=== PATIENT | male | born 1995 | race Caucasian/White ===

== ENCOUNTER 2024-05-02 12:10 | Inpatient (IN) | payer OTHER, SELFPAY ==
[2024-05-02 12:23] VITALS: BMI 29.8
[2024-05-02 12:28] VITALS: BP 165/90; PULSE 76; RESP 16; TEMP 36.8; O2SAT 98
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
--- NOTE | 2024-05-02 13:12 | MHC.EDTECH ---
This tech provided lunch tray.
[2024-05-02 13:41] LABS: Hemoglobin 14.7 g/dl (14.0-18.0); Mean Corpuscular Hemoglobin 30.2 pg (27.0-33.0); Mean Corpuscular Volume 86.2 fL (80.0-98.0); Mean Platelet Volume 9.1 fL (9.4-12.4); Platelet Count 263 X10*3/uL (160-400); Red Blood Count 4.87 X10*6/uL (4.60-5.80); Red Cell Distribution Width 13.2 % (11.0-16.0)
[2024-05-02 13:49] LABS: WBC ABN SCTR FOR CBC 1
--- NOTE | 2024-05-02 13:52 | ED.PSYCH ---
HPI - Psych General Chief Complaint: Psychiatric Symptoms Stated Complaint: section 12 Time Seen by Provider: 05/02/24 12:55 Source: patient, family and EMS Mode of arrival: EMS Limitations: no limitations History of Present Illness ED Provider: Shanell Bustillo APRN HPI Narrative: 29 Year old male here with complaints of suicidal ideations with plan to use carbon monoxide in his car. Denies HI. Denies hallucinations. Drinks alcohol daily. Last drink was a day and this morning. Smokes marijuana. No additional substance use. Patient is not currently taking any daily medications. He denies any physical complaints. Related Data Allergies Allergy/AdvReac Type Severity Reaction Status Date / Time No Known Allergies Allergy Verified 05/02/24 12:32 Review of Systems Review of Systems: Yes all other systems are reviewed and are negative Constitutional: Constitutional: Reports no additional constitutional complaints, Denies body ache(s), Denies chills, Denies fever(s), Denies headache(s) and Denies weakness Eyes: Eyes: Reports no additional eye complaints and Denies change in vision ENT: Reports system reviewed and no additional complaints, except as documented, Denies dizziness, Denies headache(s), Denies nasal congestion, Denies nasal discharge and Denies neck pain Cardiovascular: Cardiovascular: Reports no additional cardiovascular complaints, Denies chest pain, Denies leg edema and Denies dyspnea Respiratory: Respiratory: Reports no additional respiratory complaints, Denies cough and Denies dyspnea Gastrointestinal: Gastrointestinal: Reports no additional gastrointestinal complaints, Denies abdominal pain, Denies diarrhea, Denies nausea and Denies vomiting Genitourinary: Genitourinary: Denies urinary incontinence Musculoskeletal: Musculoskeletal: Reports no additional musculoskeletal complaints, Denies back pain, Denies arthralgias, Denies joint swelling, Denies neck pain, Denies numbness and Denies tingling Integumentary/Breasts: Skin/Breast: Reports system reviewed and no additional complaints, except as docu and Denies rash Neurologic: Reports system reviewed and no additional complaints, except as documented, Denies Abnormal speech present, Denies dizziness, Denies headache(s), Denies numbness, Denies tingling and Denies weakness Psychiatric: Psychiatric: Denies homicidal ideation and Reports suicidal ideation [facility] Past Medical History Attestation statement: The following information was validated with the patient. Source: old records reviewed and nursing notes reviewed Social History Social History Advance Directives: No Advance Directives Information Provided: No Physical Exam Vital Signs: Vital Signs: Last Vital Signs Temp 98.2 F 05/02/24 12:28 Pulse 76 05/02/24 12:28 Resp 16 05/02/24 12:28 BP 165/90 H 05/02/24 12:28 Pulse Ox 98 05/02/24 12:28 O2 Del Method Room Air 05/02/24 12:28 BMI result Body Mass Index 29.8 Const: General: cooperative, healthy appearing, comfortable and no acute distress Orientation/consciousness: patient oriented x3 Limitations: no limitations HEENT: Head: Yes normal to inspection Ears: hearing grossly normal bilaterally General nose exam: Normal external nose present Face and sinus: Yes normal facial exam Mouth: Normal oral and palatal mucosa present Throat: Yes posterior oropharynx normal Eyes: General: appearance normal, both eyes and all related structures Pupils: Equal, round and reactive pupils present Neck: Neck: Yes normal visual inspection Chest: Chest palpation & inspection: normal inspection of the chest Resp: Effort & Inspection: normal respiratory effort Auscultation: clear to auscultation bilaterally Cardio: Rate: regular rate Rhythm: regular rhythm Peripheral pulses: Peripheral pulses 2+ throughout GI: Inspection: Yes normal to inspection Palpation (GI): Soft to palpation and nontender Auscultation: normal bowel sounds Back/Spine/Pelvis: Thoracic/Lumbar Spine: thoracic and lumbar spine normal to inspection Skin: General skin exam: no rashes or lesions noted Neuro: General: patient oriented x3, no focal motor deficits and normal sensation to monofilament Cranial nerves: Yes Equal, round and reactive pupils present Cognition (Neuro): normal cognition Speech: No Abnormal speech present Gait exam (Neuro): Normal gait present Motor exam (neuro): 5/5 motor strength present throughout Extrem: General: Yes normal to inspection Course Course Course Narrative: 1550-place in physician observation pending disposition Medical Decision Making Medical Decision Making [facility] Narrative: 29 Year old male here with complaints of suicidal ideations with plan to use carbon monoxide in his car. Denies HI. Denies hallucinations. Drinks alcohol daily. Last drink was a day and this morning. Smokes marijuana. No additional substance use. Patient is not currently taking any daily medications. He denies any physical complaints. Low concern for acute ingestion or trauma Will need labs, drug screen, crisis consultation Differential Diagnosis Differential Diagnoses: The differential diagnosis associated with the presentation includes depression, alcohol use disorder Admission/Observation Consideration of admission/observation: Escalation of care including admission/observation considered Lab Data MDM Lab Attestation statement: I reviewed the patient's lab results. 05/02/24 13:36 05/02/24 13:36 Labs: Lab Results 05/02/24 05/02/24 05/02/24 Range/Units 13:35 13:36 14:12 WBC 11.7 H (4.8-10.8) X10*3/uL RBC 4.87 (4.60-5.80) X10*6/uL Hgb 14.7 (14.0-18.0) g/dl Hct 42.0 (42.0-52.0) % MCV 86.2 (80.0-98.0) fL MCH 30.2 (27.0-33.0) pg MCHC 35.0 (31.0-36.0) g/dl RDW 13.2 (11.0-16.0) % Plt Count 263 (160-400) X10*3/uL MPV 9.1 L (9.4-12.4) fL Immature Gran % (Auto) Cancelled Neut % (Auto) Cancelled Lymph % (Auto) Cancelled [place] % (Auto) Cancelled Eos % (Auto) Cancelled Baso % (Auto) Cancelled Lymph # (Auto) Cancelled [place] # (Auto) Cancelled Eos # (Auto) Cancelled Baso # (Auto) Cancelled Abs Immat Gran (auto) Cancelled Absolute Neuts (auto) Cancelled Absolute Nucleated RBC 0.000 (0.0-0.012) X10*3/uL Nucleated RBC % (auto) 0.0 (0.0-0.2) /100WBC Neutrophils % (Manual) 82 H (45-73) % Band Neutrophils % 3 (3-5) % Lymphocytes % (Manual) 12 L (20-40) % Monocytes % (Manual) 3 (2-11) % Abs Neuts (Manual) 9.9 H (2.0-8.3) X10*3/uL Lymphocytes # (Manual) 1.4 (1.2-4.9) X10*3/uL Monocytes # (Manual) 0.4 (0.1-1.2) X10*3/uL Platelet Estimate NORMAL (NORMAL) Plt Morphology Comment NORMAL RBC Morphology NORMAL Sodium 141 (135-145) mmol/L Potassium 4.0 (3.3-5.1) mmol/L Chloride 106 (96-108) mmol/L Carbon Dioxide 25 (22-29) mmol/L Anion Gap 14 (12-20) BUN 8 L (9-16) mg/dL Creatinine 0.77 (0.5-1.4) mg/dL Estim Creat Clear Calc 147.0 Estimated GFR > 60 Random Glucose 162 H (60-115) mg/dL Calcium 9.4 (8.4-10.2) mg/dL Total Bilirubin 0.9 (0.0-1.0) mg/dL AST 35 (5-37) U/L ALT 53 H (0-40) U/L Alkaline Phosphatase 64 (39-117) U/L Total Protein 7.3 (6.5-8.0) g/dL Albumin 4.6 (3.5-5.0) g/dL Urine Opiates Screen Not Detected (Not Detect) Ur Buprenorphine Scrn Not Detected (Not Detect) ng/mL Ur Oxycodone Screen Not Detected (Not Detect) ng/mL Urine Methadone Screen Not Detected (Not Detect) ng/mL Urine Fentanyl Screen Not Detected (Not Detect) Ur Barbiturates Screen Not Detected (Not Detect) Ur Phencyclidine Scrn Not Detected (Not Detect) Ur Amphetamines Screen Not Detected (Not Detect) U Benzodiazepines Scrn Not Detected (Not Detect) Urine Cocaine Screen Not Detected (Not Detect) U Marijuana (THC) Screen POSITIVE H (Not Detect) Ethyl Alcohol < 10 mg/dL Influenza Type A (PCR) NEGATIVE (Negative) Influenza Type B (PCR) NEGATIVE (Negative) RSV RNA Qual (PCR) NEGATIVE (Negative) SARS-CoV-2 RNA (RT-PCR) NEGATIVE (Negative) Independent Historian Clinical information obtained from an independent historian. History obtained from or confirmed by: Spouse and EMS Discharge Plan Discharge Clinical Impression: Suicidal ideation Patient Disposition: Still a Patient Print Language: Yemeni
[2024-05-02 13:56] LABS: Alanine Aminotransferase 53 U/L (0-40); Albumin Level 4.6 g/dL (3.5-5.0); Alkaline Phosphatase 64 U/L (39-117); Anion Gap 14 (12-20); Aspartate Amino Transferase 35 U/L (5-37); Bilirubin Total 0.9 mg/dL (0.0-1.0); Blood Urea Nitrogen 8 mg/dL (9-16); Calcium 9.4 mg/dL (8.4-10.2); Carbon Dioxide 25 mmol/L (22-29); Chloride 106 mmol/L (96-108); Estimated Glomerular Filt Rate > 60; Ethanol < 10 mg/dL; Glucose Random 162 mg/dL (60-115); Sodium 141 mmol/L (135-145); Total Protein 7.3 g/dL (6.5-8.0)
[2024-05-02 14:02] LABS: Band Neutrophils Percent 3 % (3-5); Lymphocytes Percent Manual 12 % (20-40); Monocytes Percent Manual 3 % (2-11); Neutrophils Percent Manual 82 % (45-73)
[2024-05-02 14:05] LABS: Platelet Estimate NORMAL (NORMAL); Platelet Morphology Comment NORMAL; RBC Morphology NORMAL
[2024-05-02 14:19] LABS: Influenza A PCR NEGATIVE (Negative); Influenza B PCR NEGATIVE (Negative); Resp Syncy Virus RNA Qual PCR NEGATIVE (Negative); SARS COV2 PCR INHOUSE NEGATIVE (Negative)
[2024-05-02 14:37] LABS: Lymphocytes Absolute Manual 1.4 X10*3/uL (1.2-4.9); Monocytes Absolute Manual 0.4 X10*3/uL (0.1-1.2); Neutrophils Absolute Manual 9.9 X10*3/uL (2.0-8.3); White Blood Count 11.7 X10*3/uL (4.8-10.8)
[2024-05-02 14:37] LABS: Amphetamine Screen Urine Not Detected (Not Detect); Barbiturates, Urine Not Detected (Not Detect); Benzodiazepines Screen Urine Not Detected (Not Detect); Buprenorphine Scr Not Detected (Not Detect); Cannabinoid Screen Urine POSITIVE (Not Detect); Cocaine Screen Urine Not Detected (Not Detect); Fentanyl, urine Not Detected (Not Detect); Methadone Screen, Urine Not Detected (Not Detect); Opiate Screen Urine Not Detected (Not Detect); Oxycodone Screen Urine Not Detected (Not Detect); Phencyclidine Screen Urine Not Detected (Not Detect)
[2024-05-02] MEDS: LORazepam 1 MG TABLET 2 MG PO (16:16)
[2024-05-02 18:23] VITALS: BP 134/94; PULSE 70; RESP 18; TEMP 37.1; O2SAT 97
--- NOTE | 2024-05-02 18:26 | PC.NURSE ---
pt states that he had been on latuda, prozac and naltrexone but hasn't taken them in about 8 days
[2024-05-03 05:07] VITALS: BP 144/96; PULSE 64; RESP 16; TEMP 36.5; O2SAT 96
[2024-05-03] MEDS: LORazepam 1 MG TABLET PO ×2 (05:21→19:00)
--- NOTE | 2024-05-03 05:24 | PC.NURSE ---
Patient just woke up reported headache, scored 7 on CIWA at 0507, Ativan 1 mg PO administered for comfort, no other distress observed/reported, 15 minutes safety check, no behavior and safety concerns, disposition per [facility] is section 12 inpatient bed search, will continue to monitor
[2024-05-03] MEDS: Naltrexone HCl 50 MG TABLET PO (09:40)
[2024-05-03] MEDS: Acetaminophen 325 MG TABLET 650 MG PO (09:50)
[2024-05-03] MEDS: Ondansetron ODT 4 MG TAB.RAPDIS TRANSLINGU (09:50)
--- NOTE | 2024-05-03 11:55 | MHC.CARE ---
Pt will be an inpatient psychiatric bedsearch
--- NOTE | 2024-05-03 12:06 | PC.NURSE ---
Pt. had two visitors requesting to come in for a visit, mother Karthik and father Adrian. Per pt., he does not want visitors at this time and this was relayed to parents. Pt. did give verbal permission for this RN to speak with his parents over the phone to update them. Parents updated over the phone re: plan of care and questions answered.
--- NOTE | 2024-05-03 13:01 | PHA.MEDREC ---
Addendum entered by Jamshid Hurt [facility] 05/03/24 13:12: MED REC CHECKED BY [facility] Original Note: Pharmacy Consult ? Medication Reconciliation Reviewed med rec done by nursing.
[2024-05-03 17:28] VITALS: BP 115/73; PULSE 77; RESP 15; TEMP 36.9; O2SAT 97
[2024-05-03] MEDS: Lurasidone HCl 20 MG TABLET PO (20:32)
--- NOTE | 2024-05-03 20:49 | PC.NURSE ---
patient remains calm and cooperative and in room at this time sleeping. even unlabored respirations.
--- NOTE | 2024-05-04 | ECG_ITS ---
Test Reason : PROLONGED QTC Blood Pressure : / mmHG Vent. Rate : 061 BPM Atrial Rate : 061 BPM P-R Int : 124 ms QRS Dur : 088 ms QT Int : 408 ms P-R-T Axes : 052 068 036 degrees QTc Int : 410 ms Normal sinus rhythm Normal ECG No previous ECGs available Referred By: Matheus Danielson Electronically Signed By:DIALLO AHN
[2024-05-04 01:39] VITALS: BP 126/81; PULSE 82; RESP 16; TEMP 36.4; O2SAT 97
--- NOTE | 2024-05-04 07:14 | PC.NURSE ---
Assumed care of patient at 0645, patient agitated this am, pt asks this RN what time do discharges start , pt educated that pt needs to be re-evaluated by the CARE team in order to determine disposition since at this time, the patient is an inpatient bedsearch. pt promptly turned around, stomped back to room, threw blanket and went to sleep. Continue plan of care for inpatient bedsearch at this time
[2024-05-04] MEDS: Naltrexone HCl 50 MG TABLET PO (08:08)
[2024-05-04] MEDS: Acetaminophen 325 MG TABLET 975 MG PO (08:09)
[2024-05-04] MEDS: Ondansetron ODT 4 MG TAB.RAPDIS TRANSLINGU ×2 (08:09→22:02)
[2024-05-04] MEDS: LORazepam 1 MG TABLET PO ×2 (08:09→22:03)
--- NOTE | 2024-05-04 08:39 | PC.NURSE ---
Patient reports that they take 20mg Prozac daily. Pt reports that they receive the medication via an online [facility] and have been taking the medications for quite some time now.
[2024-05-04 17:17] VITALS: BP 130/94; PULSE 73; TEMP 37.1; O2SAT 98
[2024-05-04 17:19] VITALS: BMI 21.9
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
[2024-05-04 20:45] VITALS: BP 128/84; PULSE 78; TEMP 36.9; O2SAT 97
[2024-05-04] MEDS: Lurasidone HCl 20 MG TABLET PO (21:34)
[2024-05-04] MEDS: traZODone HCL 50 MG TABLET PO (22:03)
[2024-05-05] VITALS: BP 114/72; PULSE 92; O2SAT 98
[2024-05-05 04:45] VITALS: BP 122/87; PULSE 94; TEMP 36.1; O2SAT 97
[2024-05-05] MEDS: Ondansetron ODT 4 MG TAB.RAPDIS TRANSLINGU (07:12)
[2024-05-05] MEDS: Acetaminophen 325 MG TABLET 650 MG PO ×2 (07:13→17:20)
[2024-05-05 08:00] VITALS: BP 160/94; PULSE 120; RESP 16; TEMP 36.1; O2SAT 98
[2024-05-05] MEDS: Multivitamin TABLET 1 TAB PO (08:44)
[2024-05-05] MEDS: Folic Acid 1 MG TABLET PO (08:44)
[2024-05-05] MEDS: FLUoxetine HCl 20 MG CAPSULE PO ×2 (08:44→17:19)
[2024-05-05] MEDS: Naltrexone HCl 50 MG TABLET PO (08:44)
[2024-05-05] MEDS: Thiamine HCL 100 MG TABLET PO (08:44)
[2024-05-05] MEDS: LORazepam 1 MG TABLET PO ×2 (08:44→22:08)
[2024-05-05 09:42] LABS: Estimated Average Glucose 126 mg/dL; Hemoglobin A1C 185.7083 umol/L; Total Hemoglobin (HGBA1C) 4364.4398 umol/L
[2024-05-05 09:55] LABS: Cholesterol 222 mg/dL (<200); HDL Cholesterol 64 mg/dL (>40); LDL Cholesterol Calculated 132 mg/dL (<100); Triglycerides 134 mg/dL (<150)
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
[2024-05-05 10:09] LABS: TSH reflex Free T4 0.73 uIU/mL (0.32-4.0)
[2024-05-05] MEDS: LORazepam 1 MG TABLET 2 MG PO (13:57)
[2024-05-05 13:58] VITALS: BP 149/101; PULSE 122; RESP 18; TEMP 36.1
[2024-05-05 19:35] VITALS: BP 125/87; PULSE 97; RESP 16; TEMP 35.9; O2SAT 98
[2024-05-05 19:39] VITALS: BP 128/87
[2024-05-05] MEDS: Nicotine Polacrilex 2 MG GUM 4 MG BUCCAL (19:39)
[2024-05-05] MEDS: cloNIDine HCL 0.1 MG TABLET PO (19:39)
[2024-05-05] MEDS: Lurasidone HCl 20 MG TABLET PO (22:08)
[2024-05-05] MEDS: traZODone HCL 50 MG TABLET PO (22:10)
--- NOTE | 2024-05-06 01:24 | PC.NURSE ---
Patient said he will let staff know if he is having withdrawal symptoms.
[2024-05-06 08:00] VITALS: BP 133/77; PULSE 98; RESP 18; TEMP 36.3; O2SAT 99
[2024-05-06] MEDS: Acetaminophen 325 MG TABLET 650 MG PO (08:03)
[2024-05-06] MEDS: Thiamine HCL 100 MG TABLET PO (08:04)
[2024-05-06] MEDS: LORazepam 1 MG TABLET 2 MG PO ×2 (08:04→20:46)
[2024-05-06] MEDS: Multivitamin TABLET 1 TAB PO (08:04)
[2024-05-06] MEDS: Naltrexone HCl 50 MG TABLET PO (08:04)
[2024-05-06] MEDS: Folic Acid 1 MG TABLET PO (08:04)
[2024-05-06] MEDS: FLUoxetine HCl 20 MG CAPSULE 40 MG PO (08:04)
[2024-05-06] MEDS: Ondansetron ODT 4 MG TAB.RAPDIS TRANSLINGU ×2 (08:08→17:17)
--- NOTE | 2024-05-06 09:54 | HO.PSYCHPN ---
Subjective Subjective Date of Service: 05/06/24 Reason For Visit: SI Interim History: With patient; discussed with team; met with patient's partner Patient reports they are feeling much better; depression resolving and anxiety significantly improved. No suicidal thinking at all and patient remains future oriented. Patient very thankful to staff for concern and care received including being sensitive about placing him with a roommate. Patient able to be reflective and is feeling much more clear minded about how to deal with their struggles. Patient is feeling safe, stable and optimistic, eager to go to partial day program; discussed BPD symptoms and patient feels confident they will be able to address this further in therapy. Patient's partner present and agrees that patient is doing much better and safe and ready to come home; partner has removed all the gathered supplies patient had accumulated to use for suicide. Patient sleeping and eating well and feels medication changes have been helpful; denies any side effects. Also feels that withdrawal is nearly over. Patient optimistic about remaining sober and has an appointment with the comprehensive care team. Mental Status Exam Mental Status Exam Narrative: Pt is alert and oriented; behavior is cooperative, friendly, polite; patient is not in distress; dressed in casual attire, scruffy but with adequate hygiene; mood is described as better... and affect congruent, brighter, calm; eye contact initially appropriate; Speech is normal rate, volume, prosody; no psychomotor retardation present; thought process is organized and goal directed; Thought content is on tx and aftercare; otherwise pertinent to relevant topics and without any delusional content, paranoid ideations or grandiosity; denies any SI/HI. No AVH and There is no evidence of perceptual disturbance. Patients insight and judgment fair Diagnostics Vital Signs (24Hr): Vital Signs - 24 hr 05/05/24 13:58 05/05/24 19:35 05/05/24 19:39 Temperature 97 F 96.7 F L Pulse Rate 122 H 97 Respiratory Rate 18 16 Blood Pressure 149/101 H 125/87 128/87 Pulse Oximetry 98 Oxygen Delivery Method Room Air 05/06/24 08:00 Temperature 97.3 F Pulse Rate 98 Respiratory Rate 18 Blood Pressure 133/77 Pulse Oximetry 99 Oxygen Delivery Method Room Air BMI result Body Mass Index 21.9 Labs 05/02/24 13:36 05/02/24 13:36 Labs: Laboratory Results - last 48 hr 05/05/24 09:14 Estimat Average Glucose 126 Hemoglobin A1c % 6.0 Triglycerides 134 Cholesterol 222 H LDL Cholesterol, Calc 132 H HDL Cholesterol 64 TSH 0.73 Medications Medications Current Medications Acetaminophen (Acetaminophen 325 Mg Tablet) 650 mg PO Q6H PRN PRN Reason: Headache/Pain Mild Scale (1-3) Last Admin: 05/06/24 08:03 Dose: 650 mg Al Hydroxide/Mg Hydroxide (Magnesium Hydrox/Alum Hydrox 30 Ml Oral.Susp) 30 ml PO Q6H PRN PRN Reason: Heartburn/Nausea Clonidine HCl (Clonidine Hcl 0.1 Mg Tablet) 0.1 mg PO Q4H PRN; Protocol PRN Reason: anxiety Last Admin: 05/05/24 19:39 Dose: 0.1 mg Fluoxetine HCl (Fluoxetine Hcl 20 Mg Capsule) 40 mg PO DAILY [facility] Last Admin: 05/06/24 08:04 Dose: 40 mg Folic Acid (Folic Acid 1 Mg Tablet) 1 mg PO DAILY [facility] Last Admin: 05/06/24 08:04 Dose: 1 mg Hydroxyzine HCl (Hydroxyzine Hcl 25 Mg Tablet) 25 mg PO Q6H PRN PRN Reason: Anxiety Lorazepam (Lorazepam 1 Mg Tablet) 1 mg PO TID PRN PRN Reason: Anxiety, agitation Last Admin: 05/05/24 22:08 Dose: 1 mg Lorazepam (Lorazepam 1 Mg Tablet) 1 mg PO Q2H PRN PRN Reason: CIWA 6-10 Last Admin: 05/05/24 08:44 Dose: 1 mg Lorazepam (Lorazepam 1 Mg Tablet) 2 mg PO Q2H PRN PRN Reason: CIWA 11 and above Last Admin: 05/06/24 08:04 Dose: 2 mg Lurasidone HCl (Lurasidone Hcl 20 Mg Tablet) 20 mg PO BEDTIME [facility] Last Admin: 05/05/24 22:08 Dose: 20 mg Magnesium Hydroxide (Milk Of Magnesia 30 Ml Oral.Susp) 30 ml PO DAILY PRN PRN Reason: Constipation Multivitamins/Vitamin C (Multivitamin Tablet) 1 tab PO DAILY [facility] Last Admin: 05/06/24 08:04 Dose: 1 tab Naltrexone HCl (Naltrexone Hcl 50 Mg Tablet) 50 mg PO DAILY [facility] Last Admin: 05/06/24 08:04 Dose: 50 mg Nicotine (Nicotine 21 Mg Patch.Td24) 21 mg TRANSDERMA DAILY PRN PRN Reason: smoking cessation Nicotine Polacrilex (Nicotine Polacrilex 2 Mg Gum) 4 mg BUCCAL Q2H PRN PRN Reason: Nicotine Cravings Last Admin: 05/05/24 19:39 Dose: 4 mg Nicotine Polacrilex (Nicotine Polacrilex 2 Mg Gum) 4 mg BUCCAL Q2H PRN PRN Reason: nicotine cravings Olanzapine (Olanzapine 5 Mg Tablet) 5 mg PO TID PRN PRN Reason: agitation Ondansetron HCl (Ondansetron Odt 4 Mg Tab.Rapdis) 4 mg TRANSLINGU Q6H PRN PRN Reason: Nausea and Vomiting Last Admin: 05/06/24 08:08 Dose: 4 mg Thiamine HCl (Thiamine Hcl 100 Mg Tablet) 100 mg PO DAILY [facility] Last Admin: 05/06/24 08:04 Dose: 100 mg Trazodone HCl (Trazodone Hcl 50 Mg Tablet) 50 mg PO BEDTIME MRX1 PRN PRN Reason: Insomnia Last Admin: 05/05/24 22:10 Dose: 50 mg Allergies Allergies Allergy/AdvReac Type Severity Reaction Status Date / Time No Known Allergies Allergy Verified 05/02/24 12:32 Assessment & Plan Assessment & Plan (1) MDD (major depressive disorder), recurrent, severe, with psychosis: Status: Acute Code(s): F33.3 - Major depressive disorder, recurrent, severe with psychotic symptoms (2) PTSD (post-traumatic stress disorder): Status: Acute Code(s): F43.10 - Post-traumatic stress disorder, unspecified (3) Social anxiety disorder: Status: Acute Code(s): F40.10 - Social phobia, unspecified (4) Alcohol use disorder: Status: Acute Code(s): F10.90 - Alcohol use, unspecified, uncomplicated Plan pt is a 29 yo non-binary individual (They/Them), with history of MDD, PTSD, Social anxiety, chronic SI and alcohol use disorder who presents after partner called 911/crisis for patient making suicidal statements. Patient reports that for the past 3-4 months patient's mood has been declining and alcohol use increasing. Patient thinks that the decline occurred around Patient's birthday which Patient felt was ignored and triggered worries their partner was no longer interested. Over the subsequent months and weeks patient's depression worsened further compounded by their living situation and discourteous housemate. Patient endorses diminished interest, low energy, poor concentration, increased appetite, worsening insomnia and increase in SI thoughts. Patient typically isolates but this just became worse and Patient felt more dependent on their partner. Patient continues to use drinking as a coping strategy, drinking on average 5 alcoholic drinks a day but sometimes up to 15 drinks a day; about 2 weeks ago Patient stopped taking medications feeling hopeless and their drinking increased further. Patient endorses history of frequently getting irrationally jealous and misguidingly accusing partner infidelity; about a week ago Patient's expressed reservations about the 2 of them moving in together due to patient's past jealous behaviors which transformed patient has daily passive SI into an active plan to end his life with carbon monoxide poisoning. Patient gathered all the supplies necessary to work out this planned however instead, called there partner/friends and said if they do not come over they will kill himself. When they came over, patient explained his suicidal plan and they called 911. Patient endorses continued PTSD symptoms of flashbacks, hypervigilance, easily startled; alcohol and cannabis abuse however denies any other recent drug abuse. No history of manic type episodes or behaviors. Maybe some mood congruent AH but otherwise no psychotic symptoms. Patient says that patient does not actively want to and only ever feels this way when they are intoxicated. No history of suicide attempts. Formulation/clinical reasoning: Patient has MDD, PTSD, social anxiety; at baseline they have chronic moderate depression interspersed with severe depressive episode which can last for 2-3 weeks. Patient recognizes that alcoholism exacerbates there symptoms. Patient's SI is resolved and though chronic passive wish intermittently remains, patient is very clear they do not want to be and is hopeful for treatment; it is noteworthy no history of actual suicide attempts and despite patient gathering supplies, patient did not make any attempt but rather called friends. Patient is already future oriented. Patient has notice that Prozac 20 mg has been helpful and agrees to increasing dose; Latuda recently started but both patient and partner agree that it has been helpful for tampering down irritability. Will help patient detox with Ativan/CIWA (no history of withdrawal seizures); start clonidine for p.r.n. anxiety. Patient very much wants aftercare. Also wants to get on Vivitrol Hospital course: On admission, patient tearful, anxious and depressed however eager for treatment and optimistic about both getting help and pursuing sobriety. Patient very clear about how there alcoholism is making symptoms worse and harder to get over depression and is hoping to get on Vivitrol. Discussed medication including risks/potential side effects of medication regimen and patient agrees to increase Prozac which they think has been helpful and continue with trazodone, newly started; also to try clonidine. 05/06 Patient reports they are feeling much better; depression resolving and anxiety significantly improved. Of note, patient has much brighter affect and is comfortable socializing in the milieu. No suicidal thinking at all and patient remains future oriented. Patient very thankful to staff for concern and care received including being sensitive about placing him with a roommate. Patient able to be reflective and is feeling much more clear minded about how to deal with their struggles. Patient is feeling safe, stable and optimistic, eager to go to partial day program; discussed BPD symptoms and patient feels confident they will be able to address this further in therapy. Patient's partner present and agrees that patient is doing much better and safe and ready to come home; partner has removed all the gathered supplies patient had accumulated to use for suicide. Patient sleeping and eating well and feels medication changes have been helpful; denies any side effects. Also feels that withdrawal is nearly over. Patient optimistic about remaining sober and has an appointment with the comprehensive care team. Patient has stabilized and is doing much better. Aftercare is set up and patient is returning home to his very supportive partner the thinks patient is safe to return home. Despite patient having gathered supplies for suicide attempt, they never made an attempt and instead reached out for help; also patient has no history of attempts and remains future oriented. Patient of course remains vulnerable to relapse and decompensation however this is a chronic issue, of which patient is well aware and will not resolve with longer stay on inpatient unit or with further medication management; rather this requires consistent outpatient treatment at commitment to sobriety, which patient is eager to pursue. Patient has a 3 day notice an and is asking for discharge. They are not in imminent risk for harm to self or others and appropriate to return to the community for treatment. Request for discharge honored. Medication: Increase Prozac to 40 mg Continued Latuda 20 mg Started clonidine p.r.n. for anxiety Started trazodone p.r.n. for insomnia Continue naltrexone; patient meeting with comprehensive Care to get on Vivitrol Patient educated on: diagnosis, medication risk/benefits, substance abuse and therapeutic strategies Informed Consent: understands Reason for continued inpatient stay Substantial Risk for: stable for discharge Time Spent With Patient Time: Total time managing care of this patient today ____ minutes.
[2024-05-06 12:00] VITALS: BP 140/82; PULSE 95; RESP 16; TEMP 36.6; O2SAT 95
[2024-05-06 17:17] VITALS: BP 134/72
[2024-05-06] MEDS: cloNIDine HCL 0.1 MG TABLET PO (17:17)
[2024-05-06 20:00] VITALS: BP 135/75; PULSE 89; RESP 15; TEMP 36.6; O2SAT 97
[2024-05-06] MEDS: traZODone HCL 50 MG TABLET PO (20:43)
[2024-05-06] MEDS: Lurasidone HCl 20 MG TABLET PO (20:43)
[2024-05-07 07:50] VITALS: BP 121/75; PULSE 96; RESP 18; TEMP 36; O2SAT 97
[2024-05-07] MEDS: Naltrexone HCl 50 MG TABLET PO (08:49)
[2024-05-07] MEDS: Thiamine HCL 100 MG TABLET PO (08:49)
[2024-05-07] MEDS: Multivitamin TABLET 1 TAB PO (08:49)
[2024-05-07] MEDS: Folic Acid 1 MG TABLET PO (08:49)
[2024-05-07] MEDS: FLUoxetine HCl 20 MG CAPSULE 40 MG PO (08:49)
--- NOTE | 2024-05-07 08:50 | PM.PSYDC ---
DS: Providers Provider Date of Service: 05/07/24 Date of admission: 05/04/24 15:34 Date of discharge: 05/07/24 Primary care physician: None Physician Attending physician on admission: Norman Hickman Consults: 05/02/24 13:54 Consult to Care Team Stat Comment: Reason for consultation: SI 05/04/24 22:51 Addiction Medicine Routine Consulting Provider: Addiction Covering Reason for consultation: Alcohol abuse Attending physician on discharge: Norman Hickman DS: Diagnosis Discharge Diagnosis (1) MDD (major depressive disorder), recurrent, severe, with psychosis: Status: Acute (2) PTSD (post-traumatic stress disorder): Status: Acute (3) Social anxiety disorder: Status: Acute (4) Alcohol use disorder: Status: Acute DS: Medications Discharge Medications Home Medications: Previous Rx's ?Medication ?Instructions ?Recorded nicotine (polacrilex) 4 mg gum 4 mg buccal Q2H PRN nicotine 05/06/24 cravings 30 days #100 ea clonidine HCl 0.1 mg tablet 0.1 mg PO Q4H PRN anxiety/insomnia 05/07/24 30 days #90 tabs fluoxetine 40 mg capsule 40 mg PO DAILY 30 days #30 caps 05/07/24 lurasidone 20 mg tablet 20 mg PO DAILY 30 days #30 tabs 05/07/24 naltrexone 50 mg tablet 50 mg PO DAILY 30 days #30 tabs 05/07/24 trazodone 50 mg tablet 50 mg PO BEDTIME PRN Insomnia 30 05/07/24 days #30 tabs Mental Status Exam Mental Status Exam Narrative: Pt is alert and oriented; behavior is cooperative, friendly, polite; patient is not in distress; dressed in casual attire, scruffy but with adequate hygiene; mood is described as good and affect congruent, bright, calm; eye contact initially appropriate; Speech is normal rate, volume, prosody; no psychomotor retardation present; thought process is organized and goal directed; Thought content is on tx and aftercare; otherwise pertinent to relevant topics and without any delusional content, paranoid ideations or grandiosity; denies any SI/HI. No AVH and There is no evidence of perceptual disturbance. Patients insight and judgment fair Data Data Completed and Pending Completed studies during hospitalization [Text1]: 05/02/24 05/02/24 05/02/24 13:35 13:36 14:12 WBC 11.7 H RBC 4.87 Hgb 14.7 Hct 42.0 MCV 86.2 MCH 30.2 MCHC 35.0 RDW 13.2 Plt Count 263 MPV 9.1 L Immature Gran % (Auto) Cancelled Neut % (Auto) Cancelled Lymph % (Auto) Cancelled [place] % (Auto) Cancelled Eos % (Auto) Cancelled Baso % (Auto) Cancelled Lymph # (Auto) Cancelled [place] # (Auto) Cancelled Eos # (Auto) Cancelled Baso # (Auto) Cancelled Abs Immat Gran (auto) Cancelled Absolute Neuts (auto) Cancelled Absolute Nucleated RBC 0.000 Nucleated RBC % (auto) 0.0 Neutrophils % (Manual) 82 H Band Neutrophils % 3 Lymphocytes % (Manual) 12 L Monocytes % (Manual) 3 Abs Neuts (Manual) 9.9 H Lymphocytes # (Manual) 1.4 Monocytes # (Manual) 0.4 Platelet Estimate NORMAL Plt Morphology Comment NORMAL RBC Morphology NORMAL Sodium 141 Potassium 4.0 Chloride 106 Carbon Dioxide 25 Anion Gap 14 BUN 8 L Creatinine 0.77 Estim Creat Clear Calc 147.0 Estimated GFR > 60 Random Glucose 162 H Estimat Average Glucose Hemoglobin A1c % Calcium 9.4 Total Bilirubin 0.9 Direct Bilirubin AST 35 ALT 53 H Alkaline Phosphatase 64 Total Protein 7.3 Albumin 4.6 Triglycerides Cholesterol LDL Cholesterol, Calc HDL Cholesterol TSH Urine Opiates Screen Not Detected Ur Buprenorphine Scrn Not Detected Ur Oxycodone Screen Not Detected Urine Methadone Screen Not Detected Urine Fentanyl Screen Not Detected Ur Barbiturates Screen Not Detected Ur Phencyclidine Scrn Not Detected Ur Amphetamines Screen Not Detected U Benzodiazepines Scrn Not Detected Urine Cocaine Screen Not Detected U Marijuana (THC) Screen POSITIVE H Ethyl Alcohol < 10 Influenza Type A (PCR) NEGATIVE Influenza Type B (PCR) NEGATIVE RSV RNA Qual (PCR) NEGATIVE SARS-CoV-2 RNA (RT-PCR) NEGATIVE 05/05/24 05/07/24 09:14 08:35 WBC RBC Hgb Hct MCV MCH MCHC RDW Plt Count MPV Immature Gran % (Auto) Neut % (Auto) Lymph % (Auto) [place] % (Auto) Eos % (Auto) Baso % (Auto) Lymph # (Auto) [place] # (Auto) Eos # (Auto) Baso # (Auto) Abs Immat Gran (auto) Absolute Neuts (auto) Absolute Nucleated RBC Nucleated RBC % (auto) Neutrophils % (Manual) Band Neutrophils % Lymphocytes % (Manual) Monocytes % (Manual) Abs Neuts (Manual) Lymphocytes # (Manual) Monocytes # (Manual) Platelet Estimate Plt Morphology Comment RBC Morphology Sodium Potassium Chloride Carbon Dioxide Anion Gap BUN Creatinine Estim Creat Clear Calc Estimated GFR Random Glucose Estimat Average Glucose 126 Hemoglobin A1c % 6.0 Calcium Total Bilirubin Pending Direct Bilirubin Pending AST Pending ALT Pending Alkaline Phosphatase Pending Total Protein Pending Albumin Pending Triglycerides 134 Cholesterol 222 H LDL Cholesterol, Calc 132 H HDL Cholesterol 64 TSH 0.73 Urine Opiates Screen Ur Buprenorphine Scrn Ur Oxycodone Screen Urine Methadone Screen Urine Fentanyl Screen Ur Barbiturates Screen Ur Phencyclidine Scrn Ur Amphetamines Screen U Benzodiazepines Scrn Urine Cocaine Screen U Marijuana (THC) Screen Ethyl Alcohol Influenza Type A (PCR) Influenza Type B (PCR) RSV RNA Qual (PCR) SARS-CoV-2 RNA (RT-PCR) DS: Summary Hospital Course Hospital Course: HPI: pt is a 29 yo non-binary individual (They/Them), with history of MDD, PTSD, Social anxiety, chronic SI and alcohol use disorder who presents after partner called 911/crisis for patient making suicidal statements. Patient reports that for the past 3-4 months patient's mood has been declining and alcohol use increasing. Patient thinks that the decline occurred around Patient's birthday which Patient felt was ignored and triggered worries their partner was no longer interested. Over the subsequent months and weeks patient's depression worsened further compounded by their living situation and discourteous housemate. Patient endorses diminished interest, low energy, poor concentration, increased appetite, worsening insomnia and increase in SI thoughts. Patient typically isolates but this just became worse and Patient felt more dependent on their partner. Patient continues to use drinking as a coping strategy, drinking on average 5 alcoholic drinks a day but sometimes up to 15 drinks a day; about 2 weeks ago Patient stopped taking medications feeling hopeless and their drinking increased further. Patient endorses history of frequently getting irrationally jealous and misguidingly accusing partner infidelity; about a week ago Patient's expressed reservations about the 2 of them moving in together due to patient's past jealous behaviors which transformed patient has daily passive SI into an active plan to end his life with carbon monoxide poisoning. Patient gathered all the supplies necessary to work out this planned however instead, called there partner/friends and said if they do not come over they will kill himself. When they came over, patient explained his suicidal plan and they called 911. Patient endorses continued PTSD symptoms of flashbacks, hypervigilance, easily startled; alcohol and cannabis abuse however denies any other recent drug abuse. No history of manic type episodes or behaviors. Maybe some mood congruent AH but otherwise no psychotic symptoms. Patient says that patient does not actively want to and only ever feels this way when they are intoxicated. No history of suicide attempts. Formulation/clinical reasoning: Patient has MDD, PTSD, social anxiety; at baseline they have chronic moderate depression interspersed with severe depressive episode which can last for 2-3 weeks. Patient recognizes that alcoholism exacerbates there symptoms. Patient's SI is resolved and though chronic passive wish intermittently remains, patient is very clear they do not want to be and is hopeful for treatment; it is noteworthy no history of actual suicide attempts and despite patient gathering supplies, patient did not make any attempt but rather called friends. Patient is already future oriented. Patient has notice that Prozac 20 mg has been helpful and agrees to increasing dose; Latuda recently started but both patient and partner agree that it has been helpful for tampering down irritability. Will help patient detox with Ativan/CIWA (no history of withdrawal seizures); start clonidine for p.r.n. anxiety. Patient very much wants aftercare. Also wants to get on Vivitrol Hospital course: On admission, patient tearful, anxious and depressed however eager for treatment and optimistic about both getting help and pursuing sobriety. Patient very clear about how there alcoholism is making symptoms worse and harder to get over depression and is hoping to get on Vivitrol. Discussed medication including risks/potential side effects of medication regimen and patient agrees to increase Prozac which they think has been helpful and continue with trazodone, newly started; also to try clonidine. 05/06 Patient reports they are feeling much better; depression resolving and anxiety significantly improved. Of note, patient has much brighter affect and is comfortable socializing in the milieu. No suicidal thinking at all and patient remains future oriented. Patient very thankful to staff for concern and care received including being sensitive about placing him with a roommate. Patient able to be reflective and is feeling much more clear minded about how to deal with their struggles. Patient is feeling safe, stable and optimistic, eager to go to partial day program; discussed BPD symptoms and patient feels confident they will be able to address this further in therapy. Patient's partner present and agrees that patient is doing much better and safe and ready to come home; partner has removed all the gathered supplies patient had accumulated to use for suicide. Patient sleeping and eating well and feels medication changes have been helpful; denies any side effects. Also feels that withdrawal is nearly over. Patient optimistic about remaining sober and has an appointment with the comprehensive care team. Patient has stabilized and is doing much better. Aftercare is set up and patient is returning home to his very supportive partner the thinks patient is safe to return home. Despite patient having gathered supplies for suicide attempt, they never made an attempt and instead reached out for help; also patient has no history of attempts and remains future oriented. Patient of course remains vulnerable to relapse and decompensation however this is a chronic issue, of which patient is well aware and will not resolve with longer stay on inpatient unit or with further medication management; rather this requires consistent outpatient treatment at commitment to sobriety, which patient is eager to pursue. Patient has a 3 day notice an and is asking for discharge. They are not in imminent risk for harm to self or others and appropriate to return to the community for treatment. Request for discharge honored. Medication: Increased Prozac to 40 mg Continued Latuda 20 mg Started clonidine p.r.n. for anxiety Started trazodone p.r.n. for insomnia Continue naltrexone; patient meeting with comprehensive Care to get on Vivitrol Time spent discussing smoking cessation with patient: 3 to 10 minutes Status at Discharge Functional status at discharge: independent ambulation Overall status at discharge: patient is back to baseline Time Spent with Patient Time attestation: Total time managing care of this patient today _45___ minutes. Time spent: Greater than 30 minutes Specific discharge activities: Met with patient; discussed with team; prescriptions, charting Discharge Plan Discharge Anticipated Discharge Date/Time: 05/07/24 10:00 Patient Disposition: Home, Self-Care Discharge Diagnosis: MDD, recurrent, severe w/out psychosis in remission Referrals: [facility] [Other] - 05/07/24 6:00 pm (Group is offered as a hybrid, you can visit the website provided to register for the group. Intake form-[email or web address] Program and Events Calendar- [email or web address] [facility] is currently not accepting new clients for therapy services but please call the number provided to check in with them for availability. ) [facility] [Other] - 05/07/24 10:00 am ALAINA GOINS, THERAPIST [Other] - 05/14/24 10:00 am (IN PERSON) ELLEN SANCHEZ MEDICATION PROVIDER [Other] - 06/04/24 10:00 am (TELEHEALTH) ELLEN SANCHEZ [Other] - 07/02/24 12:30 pm (TELEHEALTH) PARTIAL HOSPITALIZATION PROGRAM [Other] - 05/29/24 8:00 am (IN PERSON INTAKE) Physician,None [Primary Care Provider] - 1 Week Discharge Medications: New nicotine (polacrilex) 4 mg gum 4 mg buccal Q2H PRN (Reason: nicotine cravings) 30 Days Qty: 100 0RF clonidine HCl 0.1 mg Tablet 0.1 mg PO Q4H PRN (Reason: anxiety/insomnia) 30 Days Qty: 90 1RF Protocol: Hold for SBP< HOLD for SBP < : 90 trazodone 50 mg Tablet 50 mg PO BEDTIME PRN (Reason: Insomnia) 30 Days Qty: 30 1RF Continued naltrexone 50 mg tablet 50 mg PO DAILY 30 Days Qty: 30 0RF lurasidone 20 mg tablet 20 mg PO DAILY 30 Days Qty: 30 1RF Rx Instructions: take with at least 350 calories of food Changed fluoxetine 40 mg capsule 40 mg PO DAILY 30 Days Qty: 30 1RF Discharge Orders: Discharge Order (Routine); Ordered 05/07/24 Ordered By: Norman Hickman Diet: Regular diet Activity on Discharge: As tolerated Stand Alone Forms: Patient Portal Discharge page Print Language: Tunisian Care Plan Goals: Maintain mood and safe behaviors Take medications as prescribed Continue to pursue sobriety Practice coping skills Continue with outpatient providers and reach out to them as needed Health Concerns: Mood stability and behaviors Sobriety Plan of Treatment: Follow up with your PCP, psychiatric provider and other outpatient providers regarding above concerns Take medications as prescribed Assessment: Risk assessment at time of discharge:? Patient was interviewed prior to discharge and found to be fully oriented and without any SI or HI. Patient has improved insight and judgment and wants to continue treatment. Patient is not in imminent risk of harm to self or others and has a safety plan that includes presenting to the closest ER or calling 911 if feeling unsafe.? Patient has been observed closely by nursing and unit staff throughout admission; patient has not engaged in any behaviors that suggest dangerousness to self or others and has demonstrated appropriate behaviors and impulse control
[2024-05-07 08:51] VITALS: BP 156/91
[2024-05-07] MEDS: cloNIDine HCL 0.1 MG TABLET PO (08:51)
[2024-05-07 09:09] LABS: Alanine Aminotransferase 36 U/L (0-40); Albumin Level 4.9 g/dL (3.5-5.0); Alkaline Phosphatase 65 U/L (39-117); Aspartate Amino Transferase 27 U/L (5-37); Bilirubin Direct 0.4 mg/dL (0.0-0.5); Bilirubin Total 1.5 mg/dL (0.0-1.0); Total Protein 7.8 g/dL (6.5-8.0)
== END 2024-05-07 10:05 | disposition home or self-care (01) | DRG 751 ==
LOC: HO.ED 05-04 09:32 → HO.PM5 05-04 15:42
PROVIDERS: Emergency Medicine; Admitting Provider Psychiatry & Neurology Psychiatry; Emergency Provider Emergency Medicine Emergency Medical Services; Visit Provider Psychiatry & Neurology Psychiatry
DX: F33.2 Major depressive disorder, recurrent severe without psychotic features (principal); F10.90 Alcohol use, unspecified, uncomplicated; F40.10 Social phobia, unspecified; F43.10 Post-traumatic stress disorder, unspecified; Z20.822 Contact with and (suspected) exposure to COVID-19; Z87.891 Personal history of nicotine dependence; Z79.899 Other long term (current) drug therapy
CPT/HCPCS: 0241U; 36415; 80053; 80061; 80076; 80307; 83036; 84443; 85007; 85027; 93005; 99285; S9485

== ENCOUNTER → 2024-05-04 10:27 | Outpatient (BNV) | payer SELFPAY | PROVIDERS: Admitting Provider Psychiatry & Neurology Psychiatry; Emergency Provider Emergency Medicine Emergency Medical Services; Visit Provider Internal Medicine | DX: I45.81 Long QT syndrome (principal) | CPT/HCPCS: 93010 ==

== ENCOUNTER → 2024-05-04 15:34 | Outpatient (BNV) | payer OTHER, SELFPAY | PROVIDERS: Admitting Provider Psychiatry & Neurology Psychiatry; Emergency Provider Emergency Medicine Emergency Medical Services; Visit Provider Psychiatry & Neurology Psychiatry | DX: F33.3 Major depressive disorder, recurrent, severe with psychotic symptoms (principal); F43.11 Post-traumatic stress disorder, acute; F40.10 Social phobia, unspecified; F10.90 Alcohol use, unspecified, uncomplicated | CPT/HCPCS: 90792; 99232; 99239 ==

== ENCOUNTER 2024-05-13 09:54 | Outpatient (AMB) | payer OTHER, SELFPAY ==
[2024-05-13 10:03] VITALS: BP 100/60; PULSE 70; RESP 24; O2SAT 97
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
== END 2024-05-13 10:52 | disposition home or self-care (01) ==
PROVIDERS: Visit Provider Nurse Practitioner Psychiatric/Mental Health
DX: Z51.81 Encounter for therapeutic drug level monitoring (principal); F10.90 Alcohol use, unspecified, uncomplicated
CPT/HCPCS: 99204

== ENCOUNTER → 2024-05-13 09:54 | Outpatient (BNVA) | payer OTHER, SELFPAY | PROVIDERS: Visit Provider Nurse Practitioner Psychiatric/Mental Health | DX: F10.90 Alcohol use, unspecified, uncomplicated (principal); Z51.81 Encounter for therapeutic drug level monitoring | CPT/HCPCS: 80307; 99202 ==

== ENCOUNTER 2024-05-26 09:15 | Outpatient (AMB) | payer OTHER, SELFPAY ==
[2024-05-26 09:30] VITALS: BP 120/70; PULSE 64; RESP 19; O2SAT 98
--- OUTSIDE RECORDS SUMMARY | 2024-05-26 09:42 | XMS_ITS | Clinical Summary ---
Author Organization [facility] Address [address] [facility] [address] Care Team Providers Care Early Learning Teacher Name Role Phone Unavailable Primary Care Provider Unavailabl e Allergies No known active allergies Medications naproxen (NAPROSYN) 500 MG tablet Take 1 tablet (500 mg total) by mouth daily Active Social History Tobacco Use Types Packs/Day Years Used Date Smoking Tobacco: Every Day Cigarettes Smokeless Tobacco: Never Tobacco Cessation:Ready to Q uit: No; Counseling Given: Yes Comments:Discussed smoking cessation. Alcohol Use Standard Drinks/Week Comments Never 0 (1 standard drink = 0.6 oz pur e alcohol) PHQ-2 Answer Date Recorded PHQ-2 Total Score 0 06/26/2023 Sex and Gender Information Value Date Recorded Sex Assigned at Not on file Legal Sex Male 10:34 AM EST Gender Identity Not on file Sexual Orientation Not on file Last Filed Vital Signs Vital Sign Reading Time Taken Comments Blood Pressure 120/80 06/26/2023 8:47 AM EST Pulse 60 06/26/2023 8:47 AM EST Temperature 37 ??C (98.6 ??F) 06/26/2023 8:47 AM EST Respiratory Rate 18 06/26/2023 8:47 AM EST Oxygen Saturation 100% 06/26/2023 8:47 AM EST Inhaled Oxygen Concentration - - Weight 90.7 kg (200 lb) 06/26/2023 8:47 AM EST Height 185.4 cm (6' 1 ) 06/26/2023 8:47 AM EST Body Mass Index 26.39 06/26/2023 8:47 AM EST Plan of Treatment Health Maintenance Due Date Last Done Comments Pneumococcal Vaccination Scr eening: Pts 0-19 & 19-64 yrs of age ([facility]) (1 of 2 - PCV) 01/18/2000 Hepatitis C Virus Infection in Adolescents and Adults: Screening (or Modifier) ([facility]) 01/18/2012 SDOH Screening Reminder: Janelle hardin for all adults ([facility]) 01/18/2012 Lipid Screening: Once for Me n aged 20 to 35 yrs ([facility]) 2014 DTaP/Tdap/Td Vaccines ([facility]) (1 - Tdap) 06/13/2019 Flu Vaccination: Yearly for ages 18mos through 64 years (or Modifier)([facility]) 11/28/2023 06/12/2019 COVID-19 Vaccine Screening: Initial Series and Booster Status ([facility]) ( season) 2023 08/02/2020 Depression: Screening Annual ly using PHQ-2/9 in Adults 18 yrs or above (or HM Modifier)([facility]) 06/26/2024 06/26/2023 Tobacco Smoking Cessation: i n Adults excluding Women: Behavioral and Pharmacotherapy Interventions ([facility]) 06/26/2024 06/26/2023 Zoster/Shingles Vaccine Seri es Screening: Adults aged 18+ yrs (or HM Modifiers)([facility]) (1 of 2) 01/18/2044 Medical Devices Not on file
--- NOTE | 2024-05-26 13:43 | AM.OFFVISNUR ---
Vital Signs 05/26/24 09:30 BP 120/70 Blood Pressure Location Rt brachial Position Sitting Respiration 19 Pulse 64 Pulse Source Pulse Oximeter Pulse Oximetry (%) 98 Oxygen Delivery Method Room Air Intake Visit Reasons: Vivitrol Injection Allergies No Known Allergies Allergy (Verified 05/02/24 12:32) Nursing Note Patient Presents for his first vivitrol Injection. Current Dose 380mg . Given in the LG with no noted or stated complications. Patient was instructed on signs and symptoms of site/med reactions and verablly agrees to call [facility] with any questions. Patient stayed post injection for 15 minute monitoring and left with mother. Office Meds Vivitrol 380 mg intramuscular suspension,extended release Performing Provider: Eduarda Evans CNP Performing Location: [facility] Administered by: Mirta Dugan RN on 05/26/24 14:55 Dose Route Admin Location Dispensed Lot Number Expiration Date [facility] 380 mg IM LG 380 mg [id number] 11/26/26 04685-433-75 [employer] Assessment & Plan Assessment & Plan Orders: Orders AMB Naltrexone Injection - Practice Supplied Today F10.90 - Alcohol use, unspecified, uncomplicated Medications: New naltrexone microspheres ER (Vivitrol) 380 mg IM Q4W 1 ea 0RF Coding
== END 2024-05-26 10:14 | disposition home or self-care (01) ==
DX: F10.90 Alcohol use, unspecified, uncomplicated (principal)

== ENCOUNTER → 2024-05-26 09:15 | Outpatient (BNVA) | payer OTHER, SELFPAY | DX: F10.90 Alcohol use, unspecified, uncomplicated (principal) | CPT/HCPCS: 96372; J2315 ==

== ENCOUNTER 2024-06-02 09:22 | Outpatient (REF) | payer OTHER, SELFPAY ==
[2024-06-02 13:56] LABS: Amphetamine Screen Urine Not Detected (Not Detect); Barbiturates, Urine Not Detected (Not Detect); Benzodiazepines Screen Urine Not Detected (Not Detect); Buprenorphine Scr Not Detected (Not Detect); Cannabinoid Screen Urine POSITIVE (Not Detect); Cocaine Screen Urine Not Detected (Not Detect); Fentanyl, urine Not Detected (Not Detect); Methadone Screen, Urine Not Detected (Not Detect); Opiate Screen Urine Not Detected (Not Detect); Oxycodone Screen Urine Not Detected (Not Detect); Phencyclidine Screen Urine Not Detected (Not Detect)
== END 2024-06-02 09:23 | disposition home or self-care (01) ==
LOC: HO.LNP 09:22
PROVIDERS: Visit Provider Psychiatry & Neurology Psychiatry
DX: F33.2 Major depressive disorder, recurrent severe without psychotic features (principal); F10.99 Alcohol use, unspecified with unspecified alcohol-induced disorder; F40.10 Social phobia, unspecified
CPT/HCPCS: 80307

== ENCOUNTER 2024-06-03 07:58 | Outpatient (REF) | payer OTHER, SELFPAY | END 2024-06-03 07:59 | disposition home or self-care (01) | LOC: HO.LAB 07:58 | PROVIDERS: Visit Provider Psychiatry & Neurology Psychiatry | DX: Z13.89 Encounter for screening for other disorder (principal) ==

== ENCOUNTER → 2024-06-09 10:45 | Outpatient (BNV) | payer OTHER, SELFPAY | PROVIDERS: Visit Provider Psychiatry & Neurology Psychiatry | DX: F10.90 Alcohol use, unspecified, uncomplicated (principal); F33.3 Major depressive disorder, recurrent, severe with psychotic symptoms; F43.10 Post-traumatic stress disorder, unspecified; F40.10 Social phobia, unspecified | CPT/HCPCS: 90792; 99214 ==

== ENCOUNTER 2024-06-10 07:50 | Outpatient (REF) | payer OTHER, SELFPAY ==
[2024-06-10 08:17] LABS: MANUAL DIFF FLAG NO
[2024-06-10 08:22] LABS: Basophils Percent Auto 0.9 % (0-2); Eosinophils Absolute Auto 0.5 X10*3/uL (0.0-0.4); Hematocrit 41.7 % (42.0-52.0); Lymphocytes Absolute Auto 1.4 X10*3/uL (1.2-4.9); Lymphocytes Percent Auto 33.3 % (20-40); Mean Corpuscular HGB Conc 33.6 g/dl (31.0-36.0); Mean Corpuscular Hemoglobin 29.7 pg (27.0-33.0); Mean Corpuscular Volume 88.5 fL (80.0-98.0); Mean Platelet Volume 9.1 fL (9.4-12.4); Monocytes Absolute Auto 0.3 X10*3/uL (0.1-1.2); Monocytes Percent Auto 6.6 % (2-11); Neutrophils Absolute Auto 2.1 x10*3/uL (2.0-8.3); Neutrophils Percent Auto 48.2 % (45-73); Platelet Count 186 X10*3/uL (160-400); Red Blood Count 4.71 X10*6/uL (4.60-5.80); Red Cell Distribution Width 12.6 % (11.0-16.0); White Blood Count 4.3 X10*3/uL (4.8-10.8)
[2024-06-10 08:37] LABS: Estimated Average Glucose 131 mg/dL; Hemoglobin A1C 163.3294 umol/L; Hemoglobin A1c % 6.2 % (<6.0); Total Hemoglobin (HGBA1C) 3708.0799 umol/L
[2024-06-10 09:05] LABS: Alanine Aminotransferase 18 U/L (0-40); Albumin Level 4.5 g/dL (3.5-5.0); Anion Gap 11 (12-20); Aspartate Amino Transferase 23 U/L (5-37); Bilirubin Total 0.7 mg/dL (0.0-1.0); Blood Urea Nitrogen 8 mg/dL (9-16); C Reactive Protein < 0.10 mg/dL (< or = 0.50); Calcium 9.6 mg/dL (8.4-10.2); Carbon Dioxide 27 mmol/L (22-29); Chloride 105 mmol/L (96-108); Cholesterol 192 mg/dL (<200); Estimated Glomerular Filt Rate > 60; Glucose Fasting 145 mg/dL (60-99); HDL Cholesterol 52 mg/dL (>40); Iron 77 mcg/dL (45-160); LDL Cholesterol Calculated 109 mg/dL (<100); Percent Iron Saturation 27 % (15-50); Potassium 4.2 mmol/L (3.3-5.1); Sodium 139 mmol/L (135-145); Total Iron Binding Capacity 289 mcg/dL (228-428); Total Protein 7.5 g/dL (6.5-8.0); Triglycerides 159 mg/dL (<150); Unsaturated Iron Binding 212 ug/dL
[2024-06-10 09:07] LABS: Erythrocyte Sedimentation Rate 2 MM/HR (0-15)
[2024-06-10 09:16] LABS: Alkaline Phosphatase 63 U/L (39-117)
[2024-06-10 09:25] LABS: HBS Num1 0.35 mIU/mL (0-7.99); HBc Num1 0.04 S/CO (0.00-0.79); HBsAGNum1 0.35 S/CO (0.00-0.99); HIV AB/AG Nonreactive (Nonreactive); HIV Num 1 0.05 S/CO (0.00-0.99); Hepatitis B Core Antibody Nonreactive (Nonreactive); Hepatitis B Surface Antigen Negative (Negative); Syphilis Screen Nonreactive (Nonreactive); ~HepC Num1 0.07 S/CO (0.00-0.79); ~Hepatitis B Surface Antibody NONREACTIVE (Nonreactive); ~Hepatitis C Antibody Nonreactive (Nonreactive)
[2024-06-10 09:27] LABS: Free T4 (Free Thyroxine) 0.85 ng/dL (0.71-1.85); Thyroid Stimulating Hormone 0.86 uIU/mL (0.32-4.0); Vitamin D 25-OH Total 12.5 ng/mL (>30)
[2024-06-10 09:43] LABS: Folate 11.8 ng/mL (> or = 4.0); Vitamin B12 259 pg/mL (200-900)
[2024-06-10 09:54] LABS: Appearance Urine Clear; Color Urine Yellow; Glucose Urine UA Negative (Negative); Leukocyte Esterase Urine Negative (Negative); Nitrite Urine Negative (Negative); PH 5.5 (5.0-9.0); Specific Gravity - Urine >= 1.030 (1.005-1.025); Urine Blood Negative (Negative); Urine Ketones Trace mg/dL (Negative); Urine Protein Negative (Neg-Trace)
[2024-06-10 11:29] LABS: CT PCR NOT DETECTED (Not Detect.); NG PCR NOT DETECTED (Not Detect.)
[2024-06-11 17:23] LABS: Homocysteine 18.2 umol/L (<11.4)
[2024-06-13 11:24] LABS: Zinc 63 mcg/dL (60-130)
[2024-06-17 09:14] LABS: Vitamin B1 11 nmol/L (8-30)
== END 2024-06-10 07:51 | disposition home or self-care (01) ==
LOC: HO.LAB 07:50
PROVIDERS: Visit Provider Psychiatry & Neurology Psychiatry
DX: F33.3 Major depressive disorder, recurrent, severe with psychotic symptoms (principal); F43.10 Post-traumatic stress disorder, unspecified
CPT/HCPCS: 80053; 80061; 81003; 82306; 82607; 82746; 83036; 83090; 83540; 83735; 84425; 84439; 84443; 84630; 85025; 85652; 86140; 86704; 86706; 86780; 86803; 87340; 87389; 87491; 87591

== ENCOUNTER 2024-06-23 09:19 | Outpatient (AMB) | payer OTHER, SELFPAY ==
--- NOTE | 2024-06-23 10:29 | AM.OFFVISNUR ---
Vital Signs 06/23/24 16:18 BP 100/80 Blood Pressure Location Lt brachial Position Sitting Pulse 69 Pulse Source Pulse Oximeter Intake Visit Reasons: Vivitrol Injection Allergies No Known Allergies Allergy (Verified 05/02/24 12:32) Nursing Note Patient Presents for vivitrol Injection. Current Dose 380mg . Given in the RG with no noted or stated complications Denies any issues with previous injection. Denies symptoms, and denies any break through cravings. Will follow up with RN in 4 weeks for injection. Office Meds Vivitrol 380 mg intramuscular suspension,extended release Performing Provider: Eduarda Evans CNP Performing Location: [facility] Administered by: Mirta Dugan RN on 06/23/24 16:18 Dose Route Admin Location Dispensed Lot Number Expiration Date [facility] Studio Musician 380 mg IM RG 380 mg 2024-1038T 11/26/26 65723-663-41 [employer] Assessment & Plan Assessment & Plan Orders: Orders AMB Naltrexone Injection - Practice Supplied Today F10.90 - Alcohol use, unspecified, uncomplicated Medications: New Vivitrol ER (naltrexone microspheres) 380 mg IM ONCE 1 ea 0RF NS F10.90 - Alcohol use, unspecified, uncomplicated Coding
[2024-06-23 16:18] VITALS: BP 100/80; PULSE 69
== END 2024-06-23 09:37 | disposition home or self-care (01) ==
DX: F10.90 Alcohol use, unspecified, uncomplicated (principal)

== ENCOUNTER → 2024-06-23 09:19 | Outpatient (BNVA) | payer OTHER, SELFPAY | DX: F10.90 Alcohol use, unspecified, uncomplicated (principal); Z51.81 Encounter for therapeutic drug level monitoring; Z79.899 Other long term (current) drug therapy | CPT/HCPCS: 96372; J2315 ==

== ENCOUNTER 2024-06-24 08:03 | Outpatient (REF) | payer OTHER, SELFPAY ==
[2024-06-24 08:48] LABS: Estimated Average Glucose 131 mg/dL; Hemoglobin A1C 164.3262 umol/L; Hemoglobin A1c % 6.2 % (<6.0); Total Hemoglobin (HGBA1C) 3720.5423 umol/L
[2024-06-24 09:13] LABS: Glucose Fasting 134 mg/dL (60-99)
== END 2024-06-24 08:04 | disposition home or self-care (01) ==
LOC: HO.LAB 08:03
PROVIDERS: Visit Provider Psychiatry & Neurology Psychiatry
DX: E11.65 Type 2 diabetes mellitus with hyperglycemia (principal)
CPT/HCPCS: 36415; 82947; 83036

== ENCOUNTER 2024-06-25 10:45 | Outpatient (RCR) | payer OTHER, SELFPAY ==
[2024-06-01 11:56] VITALS: BMI 22.8
[2024-06-01 11:57] VITALS: BP 109/59; PULSE 48; TEMP 37
--- NOTE | 2024-06-01 14:09 | PC.NURSE ---
Patient is a 29 year old male who identifies as non-binary and uses they/them pronouns. Patient was referred to [facility] by [facility] inpatient behavioral health unit where they were admitted from 05/04/24-05/07/24. According to medical records patient was struggling with increased depression and SI with a plan to poison self with carbon monoxide. Patient reportedly reached out for help to their partner and friend prior to doing anything and expressed to them that they were struggling with thoughts to kill them self. 911 was called and patient was sectioned 12'd to the hospital and subsequently admitted for inpatient LOC. Patient stated hospitalization was helpful. Patient reports stresses including living with their housemate who is a friend. Patient reports they recently moved out into a new apartment over the weekend. 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 Patient stated they do not want to look for another job and they do not want anyone else to take care of their partner aside from themselves. Stated they have been caring for their partner for the past 2 years. Patient reports supports including parents, brother, sister, and partner. Currently patient is alert and oriented x4. Calm and cooperative. They presented with depressed mood and anxious affect. They denied SI, no HI. They were given a copy of their safety plan if needed. Medications reconciled with patient and patient's inpatient medical record. Patient reports they are taking medications as prescribed. Patient prescribed Clonidine. BP 109/[address] Paul is aware. Patient has a history of alcohol use. Patient reports 2 weeks ago they went on a 2- 3 day melendrez. Drinking at least a 6 pack and a pint of whiskey. Prior to hospitalization was drinking almost daily drinking 6 days a week on average 5 drinks a day. Longest period of sobriety 1.5 years [id number]. Patient attends the [facility] for MAT with Vivitrol monthly injections. Denied any sxs of alcohol withdrawal.
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
--- NOTE | 2024-06-04 07:10 | HO.PHP ---
Client's case has been opened and reviewed in team.
--- NOTE | 2024-06-09 11:44 | PC.NURSE ---
Patient has a new PCP appointment with [facility] at [address], [place], [place]. Appointment on Saturday April 19, 2025 at 10:40 AM. Office Number [phone]. Main number to all [facility] offices [phone]. The [place] office will call you when new schedule comes out to book a sooner appointment if available.
--- NOTE | 2024-06-09 22:27 | HO.PHPPROGNO ---
Subjective Subjective Date of Service: 06/09/24 Reason For Visit: AUD, BING, MARIO, MDD Interim History: It's been going well... feeling a lot more safe here . Cravings occur multiple times a day but have been less intense and short, not lasting as long . They are on Vivitrol which they attribute to overall improvement, but they do not feel PRN naltrexone is helpful in the moment . They feel they are making progress. No relapses in interim. Mood is pretty stable . Denies any hopelessness or SI since IPLOC. On Saturday they report a bit of a spiral... my emotions got away from me but did not feel they were close to relapse. Denies any SI. Anxiety not great but noticing clonidine helps for a bit , typically takes it 3 times a day (7am/11am/4pm). Denies any lightheadedness or dizziness. Lurasidone taken with food around 8pm, experiencing various muscle twitches, only a few times within first 2 hours of taking the medication. Denies any other sx EPS. They are having trouble with sleep; they were seen by their OP provider on 06/04 who encouraged them to take trazodone 50 mg more regularly but says this is too sedating in the AM even though they take before 8pm. They have not tried half tablet. Patient moved into their own place in interim, still adjusting. Feels safe at home. Physically feeling well, ROS negative. Medication Compliance: Yes Side effects from medications: Yes (as noted above) Attending Groups: Yes Review of Systems Acute medical concerns: No Mental Status Exam Mental Status Exam Narrative: Alert, oriented, in no acute distress. Calm, cooperative, engaged, reserved. No psychomotor agitation or neurovegetative retardation. Eye contact maintained. Mood anxious, affect constricted. Speech normal. Thought process linear, coherent. Thought content related to stressors, intermittent cravings, denies any hopelessness or SI. Denies any aggressive ideation or HI. No paranoia or delusional content elicited. No evidence of psychosis. Insight and judgment fair/good. Diagnostics Vital Signs (24Hr): BMI result Body Mass Index 22.8 Assessment & Plan Assessment & Plan (1) Alcohol use disorder: Status: Acute Code(s): F10.90 - Alcohol use, unspecified, uncomplicated (2) MDD (major depressive disorder), recurrent, severe, with psychosis: Status: Acute Code(s): F33.3 - Major depressive disorder, recurrent, severe with psychotic symptoms (3) PTSD (post-traumatic stress disorder): Status: Acute Code(s): F43.10 - Post-traumatic stress disorder, unspecified (4) Social anxiety disorder: Status: Acute Code(s): F40.10 - Social phobia, unspecified Plan start diphenhydramine 25-50 mg qhs prn sleep, muscle spasm ?eps consider decreasing trazodone to 25 mg 50 mg qhs prn sleep continue Latuda 20 mg qd with food/meals (may benefit from titration, however will hold until resolve ?side effects) continue Prozac 40 mg qam (consider titrating if unable to titrate lurasidone) continue Vivitrol IM monthly (started on 05/26/24) continue naltrexone 50 mg qd prn cravings continue clonidine 0.1 mg BID (pt advised to keep to BID given concerns re: hypotension) Routine lab work, UDS reviewed from 05/02/24 - elevated cholesterol, +cannabis/uds EKG, routine reviewed from 05/04/24 - NSR, QTc 410 ms, no abnormal findings MassPat reviewed Continue to monitor Patient educated on: diagnosis, medication risk/benefits and substance abuse Informed Consent: understands Reason for contiued partial hosp. stay Substantial Risk for: med/psych decompensation Certification I certify that partial hospital treatment is medically necessary due to the symptoms and problems resulting from the patient's mental illness and the failure to treat the patient at the partial hospital level of care would likely result in the patient requiring inpatient psychiatric care which could not be prevented at a less intensive level of care. Total time managing care of this patient today _30___ minutes. Discharge Plan Discharge Attending provider: She Paul Additional Instructions: New PCP appointment with [facility] at [address], [place], [place]. Appointment on Saturday April 19, 2025 at 10:40 AM. Office Number [phone]. Main number to all [facility] offices [phone]. The [place] office will call you when new schedule comes out to book a sooner appointment if available. Medications: New diphenhydramine HCl 25 mg capsule 25 - 50 mg PO BEDTIME PRN (Reason: sleep) Qty: 30 0RF Continued clonidine HCl 0.1 mg Tablet 0.1 mg PO Q4H PRN (Reason: anxiety/insomnia) 30 Days Qty: 90 1RF Protocol: Hold for SBP< HOLD for SBP < : 90 fluoxetine 40 mg capsule 40 mg PO DAILY 30 Days Qty: 30 1RF naltrexone 50 mg tablet 50 mg PO DAILY 30 Days Qty: 30 0RF lurasidone 20 mg tablet 20 mg PO DAILY 30 Days Qty: 30 1RF Rx Instructions: take with at least 350 calories of food Vivitrol 380 mg suspension,extended rel recon 380 mg IM Q4W Qty: 1 0RF Changed trazodone 50 mg Tablet 25 - 50 mg PO BEDTIME PRN (Reason: Insomnia) 30 Days Qty: 30 1RF No Action nicotine (polacrilex) 4 mg gum 4 mg buccal Q2H PRN (Reason: nicotine cravings) 30 Days Qty: 100 0RF Stand Alone Forms: Patient Portal Discharge page Print Language: Hungarian
--- NOTE | 2024-06-11 13:42 | PC.NURSE ---
Dr. Paul is aware of patient's lab results including: GAP 11, BUN 8, FBS 145, Triglycerides 159, LDL 109, A1C 6.2, WBC 4.3, HCT 41.7, MPV 9.1, EOS AUTO 11.0, EOS ABS 0.5, VIT D 12.5, B12 259.
--- NOTE | 2024-06-11 22:49 | HO.PHPPROGNO ---
Subjective Subjective Date of Service: 06/11/24 Reason For Visit: AUD, BING, MARIO, MDD Interim History: Patient seen for follow-up. Reports feeling yesterday was a tough day, struggled but says he utilized coping skills and was able to make some progress.. so I'm feeling accomplished today . Feels program has been helpful and is learning a lot in groups. Presents as less inhibited, more engaged. Patient is tolerating medications. They are sleeping well with addition of diphenhydramine 25 mg along with usual Seroquel 50 mg. Still feeling groggy in AM from Seroquel. I suggest they could try cutting Seroquel to 25 mg and consider Benadryl 25-50 mg. We also reviewed recent lab work from 06/10/24 noted for elevated FBS 145. Patient reports strictly fasting 12 hours prior to labwork. HbA1c 6.2 (A1c 6.0 last month). Patient reports being told may be prediabetic by provider over 10 yrs ago. Unsure of past lab work since it's been a long time. Denies ever being prescribed any meds for this. Reports diet is fairly poor, mostly fast food, and would like to see first if he can make appropriates changes to diet and start exercising. Is also smoker and understands the need to start cutting back/quit. Relays feeling motivated to make lifestyle changes at this time. There are no other FBG in system. Some nutritional deficiencies may also improve with earnest changes in diet. Creatinine 0.96 with low BUN:creatinine ratio, denies using NSAIDs, ASA other contributors. Denies further alcohol use. Cravings improved with treatment and therapy. Drinks regularly, denies any dizziness or vertigo. Denies any N/V/D r other GI problems. He will reconsider quitting again from smoking. He still has a whole pack of nicorette gum. Declines patches or other treatment options. Says he will start making a plan to eat better. Medication Compliance: Yes Side effects from medications: No Attending Groups: Yes Review of Systems Acute medical concerns: Yes as pertaining to metabolic issues, as mentioned above Mental Status Exam Mental Status Exam Narrative: Alert, oriented, in no acute distress. Calm, cooperative, reserved. No psychomotor agitation or neurovegetative retardation. Eye contact intermittent. Mood less depressed, affect calmer. Speech normal. Thought process linear, coherent. Thought content related to stressors, some transient hopelessness, denies any SI or HI. No paranoia or delusional content elicited. No evidence of psychosis. Insight and judgment - fair-good Diagnostics Vital Signs (24Hr): BMI result Body Mass Index 22.8 Assessment & Plan Assessment & Plan (1) Alcohol use disorder: Status: Acute Code(s): F10.90 - Alcohol use, unspecified, uncomplicated (2) MDD (major depressive disorder), recurrent, severe, with psychosis: Status: Acute Code(s): F33.3 - Major depressive disorder, recurrent, severe with psychotic symptoms (3) PTSD (post-traumatic stress disorder): Status: Acute Code(s): F43.10 - Post-traumatic stress disorder, unspecified (4) Social anxiety disorder: Status: Acute Code(s): F40.10 - Social phobia, unspecified (5) Vitamin D deficiency: Status: Acute Code(s): E55.9 - Vitamin D deficiency, unspecified Plan increase diphenhydramine 25-50 mg qhs prn sleep, ?eps/muscle spasms trial decreasing trazodone to 25 mg qhs prn sleep (given AE:grogginess at 50 mg) continue Latuda 20 mg qd with food/meals (may benefit from titration to 40 mg next week) continue Prozac 40 mg qam (consider titrating only if unable to titrate lurasidone) continue Vivitrol IM monthly (started on 05/26/24) continue naltrexone 50 mg qd prn cravings continue clonidine 0.1 mg BID (pt advised to keep to BID given concerns re: hypotension) Reviewed recent routine lab work: Vitamin D deficiency 12.5; B12 insufficiency 259; Hcy elevated 18.2, likely related to B12 (although levels only borderline/suboptimal, may be related to other possible like B6 which not tested. still pending B1 level. Also note BUN:creatinine low (<10:1) at 8.3. Perhaps reflects poor nutrition/low protein diet. Will review with patient if there's need for supplementation Plan to obtain a 2nd FBS by end of PHP stay EKG, routine reviewed from 05/04/24 - NSR, QTc 410 ms, no abnormal findings Continue to monitor Patient educated on: diagnosis and medication risk/benefits Informed Consent: understands Reason for contiued partial hosp. stay Substantial Risk for: med/psych decompensation Certification I certify that partial hospital treatment is medically necessary due to the symptoms and problems resulting from the patient's mental illness and the failure to treat the patient at the partial hospital level of care would likely result in the patient requiring inpatient psychiatric care which could not be prevented at a less intensive level of care. Total time managing care of this patient today ____ minutes. Discharge Plan Discharge Attending provider: She Paul Additional Instructions: New PCP appointment with [facility] at [address] [place] [address]. Appointment on Saturday April 19, 2025 at 10:40 AM. Office Number [phone]. Main number to all [facility] offices [phone]. The [place] office will call you when new schedule comes out to book a sooner appointment if available. Medications: New diphenhydramine HCl 25 mg capsule 25 - 50 mg PO BEDTIME PRN (Reason: sleep) Qty: 30 0RF ergocalciferol (vitamin D2) [Vitamin D2] 1,250 mcg (50,000 unit) capsule 1,250 mcg PO QWEEK Qty: 14 0RF Continued nicotine (polacrilex) 4 mg gum 4 mg buccal Q2H PRN (Reason: nicotine cravings) 30 Days Qty: 100 0RF clonidine HCl 0.1 mg Tablet 0.1 mg PO Q4H PRN (Reason: anxiety/insomnia) 30 Days Qty: 90 1RF Protocol: Hold for SBP< HOLD for SBP < : 90 fluoxetine 40 mg capsule 40 mg PO DAILY 30 Days Qty: 30 1RF naltrexone 50 mg tablet 50 mg PO DAILY 30 Days Qty: 30 0RF lurasidone 20 mg tablet 20 mg PO DAILY 30 Days Qty: 30 1RF Rx Instructions: take with at least 350 calories of food Vivitrol 380 mg suspension,extended rel recon 380 mg IM Q4W Qty: 1 0RF Changed trazodone 50 mg Tablet 25 - 50 mg PO BEDTIME PRN (Reason: Insomnia) 30 Days Qty: 30 1RF Stand Alone Forms: Patient Portal Discharge page Print Language: Chinese
--- NOTE | 2024-06-12 11:33 | PC.NURSE ---
Fransico stated he was interested in making an appointment with his partner's PCP. He stated he called and left them a message yesterday and is waiting for a call back.
--- NOTE | 2024-06-16 12:02 | P.PNPSP_ITS ---
Subjective Subjective Date of Service: 06/16/24 Reason For Visit: AUD, BING, MARIO, MDD Interim History: Patient seen for follow-up Doing pretty good. It was productive patient reports overall having a good weekend attending to ADLs and household. They have been utilizing diphenhydramine as needed for sleep has not been having any further issues with restless legs. Appears to be adjusting to the Latuda denies any adverse effects shakiness is gone. Mood ?it is been okay.. Not feeling as depressed . Reports depression severity has improved and is fluctuating from a 6 to 3/10 in severity, (down from an 8 or 9/10 on depression severity before Latuda. Still needs to work on at eating habits due to low appetite which has not yet covered, as well as feeling unmotivated to cook for since living alone. They are adjusting to their new apartment and new single lifestyle. They continue to rely on their parents for support as well as talking to partner (ex partner) who has been very supportive. denies any SI denies or any relapses on alcohol. Continues to smoke cigarettes. Feels Vivotrol is helpful. Medication Compliance: Yes Side effects from medications: No Attending Groups: Yes Review of Systems Acute medical concerns: No Mental Status Exam Mental Status Exam Narrative: Alert, oriented, in no acute distress. Calm, cooperative, reserved. No psychomotor agitation or neurovegetative retardation. Eye contact intermittent. Mood less depressed, affect calmer. Speech normal. Thought process linear, coherent. Thought content related to stressors, denies hopelessness, denies any SI or HI. No paranoia or delusional content elicited. No evidence of psychosis. Insight and judgment - fair-good Diagnostics Vital Signs (24Hr): BMI result Body Mass Index 22.8 Assessment & Plan Assessment & Plan (1) Alcohol use disorder: Status: Acute Code(s): F10.90 - Alcohol use, unspecified, uncomplicated (2) MDD (major depressive disorder), recurrent, severe, with psychosis: Status: Acute Code(s): F33.3 - Major depressive disorder, recurrent, severe with psychotic symptoms (3) PTSD (post-traumatic stress disorder): Status: Acute Code(s): F43.10 - Post-traumatic stress disorder, unspecified (4) Social anxiety disorder: Status: Acute Code(s): F40.10 - Social phobia, unspecified (5) Vitamin D deficiency: Status: Acute Code(s): E55.9 - Vitamin D deficiency, unspecified Plan continue diphenhydramine 25-50 mg qhs prn sleep, ?eps/muscle spasms continue Latuda 20 mg qd with food/meals (may benefit from titration to 40 mg next week) continue Prozac 40 mg qam (consider titrating only if unable to titrate lurasidone) continue Vivitrol IM monthly (started on 05/26/24) continue naltrexone 50 mg qd prn cravings continue clonidine 0.1 mg BID (pt advised to keep to BID given concerns re: hypotension) off trazodone, pt doesn't take hydroxyzine Reviewed recent routine lab work: Vitamin D deficiency 12.5; B12 insufficiency 259; Hcy elevated 18.2, likely related to B12 (although levels only borderline/suboptimal, may be related to other possible like B6 which not tested. still pending B1 level. Also note BUN:creatinine low (<10:1) at 8.3. Perhaps reflects poor nutrition/low protein diet. Will review with patient if there's need for supplementation Plan to obtain a 2nd FBS by end of PHP stay EKG, routine reviewed from 05/04/24 - NSR, QTc 410 ms, no abnormal findings Continue to monitor Patient educated on: diagnosis, medication risk/benefits and substance abuse Informed Consent: understands Reason for contiued partial hosp. stay Substantial Risk for: med/psych decompensation Certification I certify that partial hospital treatment is medically necessary due to the symptoms and problems resulting from the patient's mental illness and the failure to treat the patient at the partial hospital level of care would likely result in the patient requiring inpatient psychiatric care which could not be prevented at a less intensive level of care. Total time managing care of this patient today __30__ minutes. Discharge Plan Discharge Attending provider: She Paul Additional Instructions: New PCP appointment with [facility] at [address] [facility], [place], [place]. Appointment on Saturday April 19, 2025 at 10:40 AM. Office Number [phone]. Main number to all [facility] offices [phone]. The [place] office will call you when new schedule comes out to book a sooner appointment if available. Medications: New diphenhydramine HCl 25 mg capsule 25 - 50 mg PO BEDTIME PRN (Reason: sleep) Qty: 30 0RF ergocalciferol (vitamin D2) [Vitamin D2] 1,250 mcg (50,000 unit) capsule 1,250 mcg PO QWEEK Qty: 14 0RF Continued nicotine (polacrilex) 4 mg gum 4 mg buccal Q2H PRN (Reason: nicotine cravings) 30 Days Qty: 100 0RF clonidine HCl 0.1 mg Tablet 0.1 mg PO Q4H PRN (Reason: anxiety/insomnia) 30 Days Qty: 90 1RF Protocol: Hold for SBP< HOLD for SBP < : 90 fluoxetine 40 mg capsule 40 mg PO DAILY 30 Days Qty: 30 1RF naltrexone 50 mg tablet 50 mg PO DAILY 30 Days Qty: 30 0RF lurasidone 20 mg tablet 20 mg PO DAILY 30 Days Qty: 30 1RF Rx Instructions: take with at least 350 calories of food Changed trazodone 50 mg Tablet 25 - 50 mg PO BEDTIME PRN (Reason: Insomnia) 30 Days Qty: 30 1RF No Action Vivitrol 380 mg suspension,extended rel recon 380 mg IM Q4W Qty: 1 0RF Stand Alone Forms: Patient Portal Discharge page Print Language: Belizean
--- NOTE | 2024-06-18 08:38 | HO.PHP ---
Fransico is not scheduled to be in attendance to program today.
--- NOTE | 2024-06-24 12:14 | PC.NURSE ---
Met with Fransico gallo. Reviewed A1C 6.2, FBS 134 completed on 06/24/24. FBS on 06/10/24 145, A1C 6.2. Patient stated that he was told years ago that his blood sugars were elevated. He stated that he has changed his diet and has decreased his sugar intake since 06/10/24. I offered to help him make an appointment with a library information technician to help support him with his diet prior to his New PCP appointment however he does not want to meet with a library information technician at this time as he stated he knows what he needs to do diet guardado. Diabetes education provided. Patient has a PCP appointment in March 2025. He stated he does not want to change his PCP appointment and try to find a PCP with sooner availability. If needed patient has access to Urgent Care.
--- NOTE | 2024-06-25 18:19 | P.PNPSP_ITS ---
Subjective Subjective Date of Service: 06/25/24 Reason For Visit: AUD, BING, MARIO, MDD Diagnostics Vital Signs (24Hr): BMI result Body Mass Index 22.8 Assessment & Plan Certification I certify that partial hospital treatment is medically necessary due to the symptoms and problems resulting from the patient's mental illness and the failure to treat the patient at the partial hospital level of care would likely result in the patient requiring inpatient psychiatric care which could not be prevented at a less intensive level of care. Total time managing care of this patient today ____ minutes. Discharge Plan Discharge Attending provider: She Paul Additional Instructions: New PCP appointment with [facility] Medicine at [address] [place] [address], [place], [place]. Appointment on Saturday April 19, 2025 at 10:40 AM. Office Number [phone]. Main number to all [facility] offices [phone]. The [place] office will call you when new schedule comes out to book a sooner appointment if available. Fransico has a med provider, Maame Paul, through [facility], in which their next scheduled appointment is on July 02, 2024 at 10:30 AM via telehealth. Fransico has an OP therapist, Amee May, through [facility], in which their next scheduled appointment is June 26, 2024 at 9 AM in person. Medications: New diphenhydramine HCl 25 mg capsule 25 - 50 mg PO BEDTIME PRN (Reason: sleep) Qty: 30 0RF ergocalciferol (vitamin D2) [Vitamin D2] 1,250 mcg (50,000 unit) capsule 1,250 mcg PO QWEEK Qty: 14 0RF Continued Vivitrol 380 mg suspension,extended rel recon 380 mg IM Q4W Qty: 1 0RF nicotine (polacrilex) 4 mg gum 4 mg buccal Q2H PRN (Reason: nicotine cravings) 30 Days Qty: 100 0RF clonidine HCl 0.1 mg Tablet 0.1 mg PO Q4H PRN (Reason: anxiety/insomnia) 30 Days Qty: 90 1RF Protocol: Hold for SBP< HOLD for SBP < : 90 fluoxetine 40 mg capsule 40 mg PO DAILY 30 Days Qty: 30 1RF naltrexone 50 mg tablet 50 mg PO DAILY 30 Days Qty: 30 0RF lurasidone 20 mg tablet 20 mg PO DAILY 30 Days Qty: 30 1RF Rx Instructions: take with at least 350 calories of food Changed trazodone 50 mg Tablet 25 - 50 mg PO BEDTIME PRN (Reason: Insomnia) 30 Days Qty: 30 1RF Stand Alone Forms: Patient Portal Discharge page Patient Education: Depression (DC), Meal Planning with Diabetes Exchanges (DC), Anxiety (ED), Alcohol Use Disorder (DC) Print Language: Macedonian
== END 2024-06-25 23:59 | disposition home or self-care (01) ==
LOC: HO.PHPA 10:45
PROVIDERS: Visit Provider Psychiatry & Neurology Psychiatry
DX: F33.3 Major depressive disorder, recurrent, severe with psychotic symptoms (principal); F10.90 Alcohol use, unspecified, uncomplicated; F43.10 Post-traumatic stress disorder, unspecified; F40.10 Social phobia, unspecified; E55.9 Vitamin D deficiency, unspecified; Z79.899 Other long term (current) drug therapy
CPT/HCPCS: 90791; 90853

== ENCOUNTER → 2024-07-21 09:31 | Outpatient (AMB) | payer OTHER, SELFPAY ==
[2024-07-21 09:40] VITALS: BP 110/80; RESP 19
--- NOTE | 2024-07-21 09:40 | AM.OFFVISNUR ---
Vital Signs 07/21/24 09:40 BP 110/80 Blood Pressure Location Lt brachial Position Sitting Respiration 19 Intake Visit Reasons: Vivitrol Injection Allergies No Known Allergies Allergy (Verified 05/02/24 12:32) Nursing Note Patient Presents for vivitrol Injection. Current Dose 380mg . Given in the LG with no noted or stated complications. Denies any issues with previous injection. Denies symptoms, and denies any break through cravings. Will follow up with RN in 4 weeks for injection. Will need to see provider for check in August . Office Meds Vivitrol 380 mg intramuscular suspension,extended release Performing Provider: Eduarda Evans CNP Performing Location: [facility] Administered by: Mirta Dugan RN on 07/21/24 09:41 Dose Route Admin Location Dispensed Lot Number Expiration Date [facility] Sorting Machine Attendant 380 mg IM LG 380 mg [id number] 01/26/27 [id number] [employer] Tech Assessment & Plan Assessment & Plan Orders: Orders AMB Naltrexone Injection - Practice Supplied Today F10.90 - Alcohol use, unspecified, uncomplicated Medications: New Vivitrol ER (naltrexone microspheres) 380 mg IM ONCE 1 ea 0RF NS F10.90 - Alcohol use, unspecified, uncomplicated Coding
== END ==
LOC: HO.HCC 09:32
DX: F10.90 Alcohol use, unspecified, uncomplicated (principal)

== ENCOUNTER → 2024-07-21 09:31 | Outpatient (BNVA) | payer OTHER, SELFPAY | DX: F10.90 Alcohol use, unspecified, uncomplicated (principal); Z79.899 Other long term (current) drug therapy | CPT/HCPCS: 96372; J2315 ==

== ENCOUNTER 2024-08-18 09:26 | Outpatient (AMB) | payer OTHER, SELFPAY ==
--- NOTE | 2024-08-18 10:02 | AM.OFFVISNUR ---
Vital Signs 08/18/24 10:03 BP 116/76 Blood Pressure Location Rt brachial Position Sitting Respiration 16 Pulse 76 Pulse Source Pulse Oximeter Pulse Oximetry (%) 99 Oxygen Delivery Method Room Air Intake Visit Reasons: Injection Vivitrol Allergies No Known Allergies Allergy (Verified 05/02/24 12:32) Assessment & Plan Assessment & Plan Orders: Orders AMB 14 Panel Urine Drug Screen Today F10.90 - Alcohol use, unspecified, uncomplicated Coding
[2024-08-18 10:03] VITALS: BP 116/76; PULSE 76; RESP 16; O2SAT 99
--- NOTE | 2024-08-18 10:31 | AM.OFFVISNUR ---
Vital Signs 08/18/24 10:03 BP 116/76 Blood Pressure Location Rt brachial Position Sitting Respiration 16 Pulse 76 Pulse Source Pulse Oximeter Pulse Oximetry (%) 99 Oxygen Delivery Method Room Air Intake Visit Reasons: Injection Vivitrol Allergies No Known Allergies Allergy (Verified 05/02/24 12:32) Nursing Note Fransico presents for 4 week check in and Vivitrol injection. He is alert and oriented x 4, calm and attentive with appropriate affect. Fransico reports doing well in recovery and denies any cravings; he has just over three months of sobriety. He sees his his therapist in person weekly at [facility] in [facility] and reports beginning to develop a good rapport with her. Fransico has not had any success with AA in the past, but is interested in receiving information on a conditioning coach. TW will email him information and follow-up as needed. Fransico made an appointment in four weeks to see the provider and receive his next injection. Office Meds Vivitrol 380 mg intramuscular suspension,extended release Performing Provider: Kizzy Ortega MD Performing Location: [facility] Administered by: Kierra Gilmore RN on 08/18/24 10:22 Dose Route Admin Location Dispensed Lot Number Expiration Date [facility] Outdoor Advertising Leasing Agent 380 mg IM RG 380 mg [id number] 03/28/27 [id number] Think Passenger Comments: Pt presents for 4 week AUD check in and Vivitrol injection. Patient denies concerns about previous injections and tolerated injection well. Educated on signs and symptoms of infection, encouraged to call [facility] with any questions or concerns, Pt verbalized understanding. Follow up appointment made to return in 4 weeks for provider check in and injection Assessment & Plan Assessment & Plan Orders: Orders AMB 14 Panel Urine Drug Screen Today F10.90 - Alcohol use, unspecified, uncomplicated AMB Naltrexone Injection - Practice Supplied Today F10.90 - Alcohol use, unspecified, uncomplicated Coding
== END 2024-08-18 11:00 | disposition home or self-care (01) ==
LOC: HO.HCC 09:26
DX: F10.90 Alcohol use, unspecified, uncomplicated (principal)

== ENCOUNTER → 2024-08-18 09:26 | Outpatient (BNVA) | payer OTHER, SELFPAY | DX: F10.90 Alcohol use, unspecified, uncomplicated (principal) | CPT/HCPCS: 80307; 96372; J2315 ==

== ENCOUNTER 2024-09-18 09:26 | Outpatient (AMB) | payer OTHER, SELFPAY ==
--- NOTE | 2024-09-18 09:34 | MHC.OFFVIS ---
Vital Signs 09/18/24 09:38 Height 6 ft 1 in Weight 189 lb BMI 24.9 Pulse 62 Pulse Source Pulse Oximeter Pulse Oximetry (%) 98 Oxygen Delivery Method Room Air Intake Visit Reasons: MAT Injection Allergies No Known Allergies Allergy (Verified 09/18/24 09:38) HPI HPI MAT Injection: Details: He has been doing well and no alcohol for four months. He works in detention and likes it. [facility] Medical History Alcohol use disorder Social anxiety disorder PTSD (post-traumatic stress disorder) MDD (major depressive disorder), recurrent, severe, with psychosis Social History Household Members: None Alcohol intake: current Alcohol intake frequency: 3 or more drinks per day Alcohol type: beer and hard liquor Patient Tobacco Use Status: Current everyday Tobacco user Tobacco use type: Cigarette Cigarettes Per Day: 4 Second Hand Smoke Exposure: No Substance Use Type: Marijuana service: No Review of Systems Const All systems reviewed & are unremarkable except as noted in HPI and below Physical Exam Vital Signs: Last Vital Signs Pulse 62 09/18/24 09:38 Pulse Ox 98 09/18/24 09:38 Oxygen Delivery Method Room Air 09/18/24 09:38 BMI result Body Mass Index 24.9 Const General: cooperative Office Meds Vivitrol 380 mg intramuscular suspension,extended release Performing Provider: Kizzy Ortega MD Performing Location: [facility] Administered by: Kizzy Ortega MD on 09/18/24 13:06 Dose Route Admin Location Dispensed Lot Number Expiration Date [facility] Pea Viner Mechanic 380 mg IM left buttock 380 mg [id number] 02/26/27 [id number] Dana [employer] Assessment & Plan Assessment & Plan (1) Alcohol use disorder: Comment: He is doing well Code(s): F10.90 - Alcohol use, unspecified, uncomplicated Category: Medical Plan: Vivitrol today. See in one month. Orders: Orders AMB Naltrexone Injection - Practice Supplied Today F10.90 - Alcohol use, unspecified, uncomplicated Coding Level of Care Code Est Pt Level 3 (49806) Diagnoses Alcohol use disorder F10.90
[2024-09-18 09:38] VITALS: PULSE 62; O2SAT 98; BMI 24.9
== END 2024-09-18 10:08 | disposition home or self-care (01) ==
LOC: HO.HCC 09:27
PROVIDERS: Visit Provider Internal Medicine
DX: F10.90 Alcohol use, unspecified, uncomplicated (principal)
CPT/HCPCS: 99213

== ENCOUNTER → 2024-09-18 09:26 | Outpatient (BNVA) | payer OTHER, SELFPAY | PROVIDERS: Visit Provider Internal Medicine | DX: F10.20 Alcohol dependence, uncomplicated (principal); Z79.899 Other long term (current) drug therapy | CPT/HCPCS: 96372; 99212; J2315 ==

== ENCOUNTER 2024-10-23 09:34 | Outpatient (AMB) | payer OTHER, SELFPAY ==
--- NOTE | 2024-10-23 09:56 | A.OFFVIS_ITS ---
Vital Signs 10/23/24 09:59 Height 6 ft 1 in Pulse 78 Pulse Source Pulse Oximeter Pulse Oximetry (%) 98 Oxygen Delivery Method Room Air Intake Visit Reasons: Injection Allergies No Known Allergies Allergy (Verified 10/23/24 10:11) HPI HPI Injection: Details: He is doing well. [facility] Medical History Alcohol use disorder Social anxiety disorder PTSD (post-traumatic stress disorder) MDD (major depressive disorder), recurrent, severe, with psychosis Social History Household Members: None Alcohol intake: current Alcohol intake frequency: 3 or more drinks per day Alcohol type: beer and hard liquor Patient Tobacco Use Status: Current everyday Tobacco user Tobacco use type: Cigarette Cigarettes Per Day: 4 Second Hand Smoke Exposure: No Substance Use Type: Marijuana service: No Review of Systems Const All systems reviewed & are unremarkable except as noted in HPI and below Physical Exam Vital Signs: Last Vital Signs Pulse 78 10/23/24 09:59 Pulse Ox 98 10/23/24 09:59 Oxygen Delivery Method Room Air 10/23/24 09:59 Const General: cooperative Office Meds Vivitrol 380 mg intramuscular suspension,extended release Performing Provider: Kizzy Ortega MD Performing Location: [facility] Administered by: Kizzy Ortega MD on 10/23/24 14:54 Dose Route Admin Location Dispensed Lot Number Expiration Date [facility] Senior Nurse Manager 380 mg IM right buttock 380 mg 2024-1038T 11/26/26 [id number] [facility] Total Dispensed Waste 380 mg 0 % Assessment & Plan Assessment & Plan (1) Alcohol use disorder: Comment: He is doing well,but has had drink Code(s): F10.90 - Alcohol use, unspecified, uncomplicated Category: Medical Plan: Continue Vivitrol See as scheduled. Orders: Orders AMB Naltrexone Injection - Practice Supplied 10/23/24 F10.90 - Alcohol use, unspecified, uncomplicated Coding Level of Care Code Est Pt Level 3 (02162) Diagnoses Alcohol use disorder F10.90
[2024-10-23 09:59] VITALS: PULSE 78; O2SAT 98
== END 2024-10-23 10:23 | disposition home or self-care (01) ==
LOC: HO.HCC 09:34
PROVIDERS: Visit Provider Internal Medicine
DX: F10.90 Alcohol use, unspecified, uncomplicated (principal)
CPT/HCPCS: 99213

== ENCOUNTER → 2024-10-23 09:34 | Outpatient (BNVA) | payer OTHER, SELFPAY | PROVIDERS: Visit Provider Internal Medicine | DX: F10.90 Alcohol use, unspecified, uncomplicated (principal); Z79.899 Other long term (current) drug therapy | CPT/HCPCS: 96372; 99212; J2315 ==

== ENCOUNTER 2024-11-19 09:44 | Outpatient (AMB) | payer OTHER, SELFPAY ==
[2024-11-19 10:20] VITALS: BP 128/80; PULSE 86; O2SAT 96; BMI 24.7
--- NOTE | 2024-11-19 10:20 | AM.OFFVISNUR ---
Vital Signs 11/19/24 10:20 Height 6 ft 1 in Weight 84.822 kg BMI 24.7 BP 128/80 Pulse 86 Pulse Oximetry (%) 96 Intake Visit Reasons: Injection Allergies No Known Allergies Allergy (Verified 11/19/24 10:25) Nursing Note Fransico is here for his monthly Vivitrol injection. He is alert, oriented and cooperative with care and presents with appropriate affect. Fransico reports some issues with his significant other causing him to drink more. He reports 4-6 beers every other day approximately. He reported that his provider through [facility] has prescribed Acomprosate which he is to start taking, he will follow up with [facility] for the next RX. He was also given literature on the medications that he is taking for AuD and information on an AA group in the area that may be of interest to him and will call the [facility] if needing any other outside support references, not interested in sustainability coach. Follow-up in 4 weeks. Office Meds Vivitrol 380 mg intramuscular suspension,extended release Performing Provider: Kizzy Ortega MD Performing Location: [facility] Administered by: Kierra Gilmore RN on 11/19/24 10:28 Dose Route Admin Location Dispensed Lot Number Expiration Date [facility] Bead Picker 380 mg IM LG 380 mg 2024-1055T 02/26/27 52585-716-32 [email or web address] Total Dispensed Waste 380 mg 0 % Comments: Pt here for 4 week Vivitrol 380 mg injection. Pt denies any concern with previous injections and tolerated injection well. Educated on signs and symptoms of infection and encouraged to call [facility] with any related questions or concerns, pt verbalized understanding. Follow-up scheduled in 4 weeks for next injection. Assessment & Plan Assessment & Plan Orders: Orders AMB Naltrexone Injection Patient Supplied (NC) Today F10.90 - Alcohol use, unspecified, uncomplicated Coding
--- OUTSIDE RECORDS SUMMARY | 2024-11-19 10:20 | XMS_ITS | Clinical Summary ---
Author Organization [facility] Address [address] [place] [phone] Phone Care Team Providers Care Director Engineering Name Role Phone Sarita Julian MD, MPH Primary Care Provid er Allergies No known active allergies Medications FLUoxetine (PROZAC) 20 MG capsule Take 1 capsule (20 mg total) by mouth daily. 90 capsule 3 06/12/2019 Active Active Problems Problem Noted Date Diagnosed Date Depressive disorder 06/12/2019 Assessment & Plan (06/12/2019 10:29 AM EST): Currently stable on prozac. Continue with therapy. History of alcohol abuse 06/12/2019 Overview (06/12/2019): Sober since ~2017 Assessment & Plan (06/12/2019 10:30 AM EST): Doing really well with sobriety at this time! Tobacco use disorder 06/12/2019 Assessment & Plan (06/12/2019 10:32 AM EST): Has had some success with cutting back. We discussed cessation options. Patch might be helpful to help with physical cravings while learning to deal with the emotional cravings. Can call if would like to try patches, gum or lozenges. If wants to think about chantix or welbutrin, should return for an appointment. Immunizations Immunization Administration Dates Next Due COVID-19 (Pre-02/18) [employer] Vaccine, [id number], P F 08/02/2020 Influenza Recombinant Quadrivalent Preservative Free IM 06/12/2019 Td (adult),2 Lf Tetanus Toxoid, PF, Adsorbed Family History Medical History Relation Comments Colon polyps Father Anxiety disorder Mother Depression Mother Diabetes Mother Anxiety disorder Sister Depression Sister Bipolar disorder Neg Hx Breast cancer Neg Hx Colon cancer Neg Hx Schizophrenia Neg Hx Relation Status Comments Brother Alive Father Alive Maternal Grandfather Other unknown mot her was adopted Maternal Grandmother Other unknown- mo ther was adopted Mother Alive Paternal Grandfather history to not known Paternal Grandmother history not known Sister Alive Social History Tobacco Use Types Packs/Day Years Used Date Smoking Tobacco: Every Day Cigarettes Smokeless Tobacco: Never Alcohol Use Standard Drinks/Week Comments Not Currently 0 (1 standard drink = 0.6 oz pur e alcohol) Education Answer Date Recorded Are you interested in more education? Not on juancarlos e 08/24/2022 Are you concerned about learning? Not on file 08/24/2022 No 08/24/2022 No 08/24/2022 Digital Access Answer Date Recorded No 09/25/2022 No 09/25/2022 Reliable internet access at home? Not on file 09/25/2022 Device with a working camera? Not on file Sex and Gender Information Value Date Recorded Sex Assigned at Male 06/12/2019 8:26 AM EST Legal Sex Male 9:37 AM EST Gender Identity Female 06/12/2019 8:26 AM EST Sexual Orientation Queer 06/12/2019 8: 26 AM EST Last Filed Vital Signs Vital Sign Reading Time Taken Comments Blood Pressure 142/76 06/12/2019 8:21 AM EST Pulse 57 06/12/2019 8:21 AM EST Temperature 36.7 C (98 F) 06/12/2019 8:21 AM EST Respiratory Rate - - Oxygen Saturation 97% 06/12/2019 8:21 AM EST Inhaled Oxygen Concentration - - Weight 88.6 kg (195 lb 6.4 oz) 06/12/2019 8:21 A M EST Height 183.5 cm (6' 0.25 ) 06/12/2019 8:21 AM ES T Body Mass Index 26.32 06/12/2019 8:21 AM EST Plan of Treatment Upcoming Encounters Date Type Department Care Team (Late st Contact Info) Description 04/19/2025 10:40 AM EST Office Visit [facility] Internal Medicine [address] [place] [address] Frank Friedman PA-C [address] [place] [address] [email or web address] Health Maintenance Due Date Last Done Comments SMOKING Hx and SMOKELESS TOBACCO SCREENING 2007 HEPATITIS C SCREENING 01/18/2012 HIV ONE-TIME SCREENING (18-6 5 YEARS) 01/18/2012 PNEUMOCOCCAL VACCINES (0-49 years) (1 of 2 - PCV) 2013 DEPRESSION SCREENING 06/12/2020 06/12/2019, 06/12/2019 COVID-19 VACCINE (2 - 2023-2 5 season) 2023 08/02/2020 Adult Td,Tdap Booster 06/12/2029 06/12/2019 HEPATITIS A VACCINES Aged Out No long er eligible based on patient's age to complete this topic HIB VACCINES Aged Out No longer eligi ble based on patient's age to complete this topic MENINGOCOCCAL VACCINES (ACWY) Aged Out No longer eligible based on patient's age to complete this topic MENINGOCOCCAL VACCINES (B) Aged Out N o longer eligible based on patient's age to complete this topic Medical Devices Not on file Insurance [address] [place] [phone] [facility] DIRECT [address] [place] [phone] [facility] DIRECT [facility] [address] [place] [phone] [place] [address] [place] [phone] [place] [phone] [place] [phone] Care Teams Director Engineering Relationship Specialty Start Date End Date Sarita Julian MD, MPH [address] [place] [phone] [email or web address] PCP - General 06/09/24 Additional Source Comments The information contained in this document represents components of the legal health record. It is not the complete legal health record.[facility]
== END 2024-11-19 10:34 | disposition home or self-care (01) ==
LOC: HO.HCC 09:44
DX: F10.90 Alcohol use, unspecified, uncomplicated (principal)

== ENCOUNTER → 2024-11-19 09:44 | Outpatient (BNVA) | payer OTHER, SELFPAY | DX: F10.90 Alcohol use, unspecified, uncomplicated (principal) | CPT/HCPCS: 96372; J2315 ==

== ENCOUNTER 2024-12-16 09:32 | Outpatient (AMB) | payer OTHER, SELFPAY ==
--- NOTE | 2024-12-16 09:46 | AM.OFFVISNUR ---
Vital Signs 12/16/24 10:03 BP 108/68 Blood Pressure Location Lt brachial Position Sitting Pulse 64 Pulse Oximetry (%) 99 Intake Visit Reasons: Injection Allergies No Known Allergies Allergy (Verified 11/19/24 10:25) Nursing Note Fransico presents today for his four week Vivitrol injection. Fransico is alert, oriented and presents with appropriate affect. He reported difficulty in picking up the his new RX for Acomprosate written by his provider at [facility]; Lanie Finn THERMOMETER MAKER made call to alert the provider there that there was an issue with the prescription. Zach reported a couple of times in the past month that he drank 4-6 beers, still a large reduction from previous intake- he mentioned wanting to reduce smoking marijuana due to feeling that it prevents him from dealing with the sources of his anxieties, discussed general coping skills for anxiety reduction. Fransico mentioned that he had been involved with [employer] online resources. He will check in with Lanie for general guidance on obtaining his RX. Follow up in 4 weeks for next injection Office Meds Vivitrol 380 mg intramuscular suspension,extended release Performing Provider: Kizzy Ortega MD Performing Location: [facility] Administered by: Kierra Gilmore RN on 12/16/24 10:23 Dose Route Admin Location Dispensed Lot Number Expiration Date [facility] Pe Electrical Engineer 380 mg IM RG 380 mg 2024-1058T 02/26/27 86668-709-22 [employer] Total Dispensed Waste 380 mg 0 % Comments: Pt is present for 4 week Vivitrol 380 mg injection. Pt denies any concern with previous injections and tolerated injection well. Educated on signs and symptoms of infection and encouraged to call [facility] with any related questions or concerns, pt verbalized understanding. Follow-up scheduled in 4 weeks for next injection. Assessment & Plan Assessment & Plan Orders: Orders AMB Naltrexone Injection Patient Supplied (NC) Today F10.90 - Alcohol use, unspecified, uncomplicated Coding
[2024-12-16 10:03] VITALS: BP 108/68; PULSE 64; O2SAT 99
--- OUTSIDE RECORDS SUMMARY | 2024-12-16 10:17 | XMS_ITS | Clinical Summary ---
Author Organization [facility] Address [address] [address] [place] [phone] Phone Care Team Providers Care Topographical Engineer Name Role Phone Sarita Julian MD, MPH [...] Immunization Administration Dates Next Due COVID-19 (Pre-02/18) [employer] Vaccine, rS-Ad26, P F 08/02/2020 Influenza Recombinant [...] Description 04/19/2025 10:40 AM EST Office Visit [facility] Internal Medicine [address] [place] [address] Frank Friedman PA-C [address] [place] [address] [email or web address] Health Maintenance Due Date Last Done Comments [...] Medical Devices Not on file Insurance [address] [place] [phone] [facility] Luminate Health [facility] DIRECT [address] [place] [phone] [facility] DIRECT [facility] PLANS [address] [place] [phone] [place] [address] [place] [address] [place] [address] [place] [address] Care Teams Topographical Engineer Relationship Specialty Start Date End Date Sarita Julian MD, MPH [address] [place] [phone] [email or web address] PCP - General 06/09/24 Additional Source Comments The information contained in this document represents components of the legal health record. It is not the complete legal health record.[facility]
== END 2024-12-16 10:48 | disposition home or self-care (01) ==
DX: F10.90 Alcohol use, unspecified, uncomplicated (principal)

== ENCOUNTER → 2024-12-16 09:32 | Outpatient (BNVA) | payer OTHER, SELFPAY | DX: F10.90 Alcohol use, unspecified, uncomplicated (principal) | CPT/HCPCS: 96372; J2315 ==

== ENCOUNTER 2025-01-14 08:54 | Outpatient (AMB) | payer OTHER, SELFPAY ==
--- NOTE | 2025-01-14 09:12 | AM.OFFVISNUR ---
Vital Signs 01/14/25 09:16 Height 6 ft 1 in Weight 87.09 kg BMI 25.3 BP 118/72 Pulse 60 Pulse Oximetry (%) 98 Intake Visit Reasons: Injection Allergies No Known Allergies Allergy (Verified 01/14/25 09:17) Nursing Note Fransico presents today for his four week Vivitrol injection. Fransico is alert, oriented and presents with appropriate affect; he reports having a pretty good month. He reported one slip up a few weeks ago but has not had any issues since. He has allen taking the Campral consistently and reports good effect. He requested an RX for nicotine gum which was initially written when he was last inpatient. Provider aware.Follow up in four weeks for next injection. Office Meds Vivitrol 380 mg intramuscular suspension,extended release Performing Provider: Kizzy Ortega MD Performing Location: [facility] Administered by: Kierra Gilmore RN on 01/14/25 09:42 Dose Route Admin Location Dispensed Lot Number Expiration Date [facility] Tar Distillation Supervisor 380 mg IM RG 380 mg 2025-3006T 02/26/27 99753-843-54 [employer] Total Dispensed Waste 380 mg 0 % Comments: Pt is present for the Vivitrol 380 mg injection. Pt denies any concern with previous injection and tolerated injection well. Educated on signs and symptoms of infection and encouraged to call [facility] with any related questions or concerns, pt verbalized understanding. Follow-up scheduled in 4 weeks for the next injection. Assessment & Plan Assessment & Plan Orders: Orders AMB Naltrexone Injection Patient Supplied (NC) Today F10.90 - Alcohol use, unspecified, uncomplicated Coding
[2025-01-14 09:16] VITALS: BP 118/72; PULSE 60; O2SAT 98; BMI 25.3
--- OUTSIDE RECORDS SUMMARY | 2025-01-14 10:10 | XMS_ITS | Clinical Summary ---
Author Organization [facility] Address [address] [facility] [address] [place] [address] Phone Care Team Providers Care Bed Teacher Name Role Phone Sarita Julian MD, MPH [...] Immunization Administration Dates Next Due COVID-19 (Pre-02/18) [employer] Vaccine, rS-Ad26, P F 08/02/2020 Influenza Recombinant [...] Description 04/19/2025 10:40 AM EST Office Visit [facility] Internal Medicine [address] [place] [address] Frank Friedman PA-C [address] [place] [address] [email or web address] Health Maintenance Due Date Last Done Comments SMOKING Hx and SMOKELESS TOBACCO SCREENING 2007 HEPATITIS C SCREENING 01/18/2012 HIV ONE-TIME SCREENING (18-6 5 YEARS) 01/18/2012 PNEUMOCOCCAL VACCINES (0-49 years) (1 of 2 - PCV) 2013 DEPRESSION SCREENING 06/12/2020 06/12/2019, 06/12/2019 INFLUENZA VACCINE (#1) 2024 06/12/2019 COVID-19 VACCINE (2 - 2024-2 6 season) 2024 08/02/2020 Adult Td,Tdap Booster 06/12/2029 06/12/2019 HEPATITIS [...] topic Medical Devices Not on file Insurance [address] [place] [phone] [facility] cit[employer]ies PLANS DIRECT [phone] [place] [address] PLANS DIRECT PLANS DIRECT [facility] PLANS DIRECT [facility] PLANS DIRECT [address] [place] [phone] [place] [address] [address] [place] [phone] [place] [phone] [place] [phone] Care Teams Bed Teacher Relationship Specialty Start Date End Date Sarita Julian MD, MPH [address] [place] [phone] [email or web address] PCP - General 06/09/24 Additional Source Comments The information contained in this document represents components of the legal health record. It is not the complete legal health record.[facility]
== END 2025-01-14 09:50 | disposition home or self-care (01) ==
LOC: HO.HCC 08:54
DX: F10.90 Alcohol use, unspecified, uncomplicated (principal)

== ENCOUNTER → 2025-01-14 08:54 | Outpatient (BNVA) | payer OTHER, SELFPAY | DX: F10.90 Alcohol use, unspecified, uncomplicated (principal); Z79.899 Other long term (current) drug therapy | CPT/HCPCS: 96372; J2315 ==

== ENCOUNTER 2025-02-11 09:26 | Outpatient (AMB) | payer OTHER, SELFPAY ==
--- NOTE | 2025-02-11 08:39 | AM.OFFVISNUR ---
Vital Signs 02/11/25 09:32 BP 110/68 Pulse 78 Pulse Oximetry (%) 97 Intake Visit Reasons: Injection Allergies No Known Allergies Allergy (Verified 02/11/25 09:33) Nursing Note Fransico presents today for his four week Vivitrol injection. Fransico is alert, oriented and presents with appropriate affect. Fransico reports having a good month, no alcohol and he has not smoked cigarettes for 3 weeks now with the help of nicotine gum; looking forward to a trip to [place] with his partner over Thanksgiving to visit family. Follow up in four weeks for next injection. Office Meds Vivitrol 380 mg intramuscular suspension,extended release Performing Provider: Kizzy Ortega MD Performing Location: [facility] Administered by: Kierra Gilmore RN on 02/11/25 10:02 Dose Route Admin Location Dispensed Lot Number Expiration Date [facility] Supervisor General 380 mg IM 380 mg 2025-1016T 05/29/27 82518-709-80 [employer] Total Dispensed Waste 380 mg 0 % Comments: Pt is present for Vivitrol injection, pt denies complications with previous injections and tolerated injection well. Pt educated on signs and symptoms of infection at the injection site, urged to call [facility] with any questions or concerns. Follow up appointment made in 4 weeks for next injection. Assessment & Plan Assessment & Plan Orders: Orders AMB Naltrexone Injection Patient Supplied (NC) Today F10.90 - Alcohol use, unspecified, uncomplicated Coding
[2025-02-11 09:32] VITALS: BP 110/68; PULSE 78; O2SAT 97
--- OUTSIDE RECORDS SUMMARY | 2025-02-11 10:44 | XMS_ITS | Clinical Summary ---
Author Organization [facility] Address [address] [facility] [address] [place] [address] Phone Care Team Providers Care Churn Operator Margarine Name Role Phone Sarita Julian MD, MPH [...] Immunization Administration Dates Next Due COVID-19 (Pre-02/18) [email or web address] Vaccine, rS-Ad26, P F 08/02/2020 Influenza Recombinant [...] Description 04/19/2025 10:40 AM EST Office Visit [facility] Internal Medicine [address] [place] [address] Frank Friedman PA-C [address] [place] [address] [email or web address] Health Maintenance Due Date Last Done Comments [...] Devices Not on file Insurance [address] [place] [phone] [facility] [employer] PLANS DIRECT [phone] [place] [address] PLANS DIRECT PLANS DIRECT [facility] PLANS DIRECT [facility] PLANS DIRECT [address] [place] [phone] [place] [address] [employer] [address]ANS [address] [place] [address] [place] [address] [place] [address] Care Teams Churn Operator Margarine Relationship Specialty Start Date End Date Sarita Julian MD, MPH [address] [place] [phone] [email or web address] PCP - General 06/09/24 Additional Source Comments The information contained in this document represents components of the legal health record. It is not the complete legal health record.[facility]
== END 2025-02-11 10:10 | disposition home or self-care (01) ==
LOC: HO.HCC 09:26
DX: F10.90 Alcohol use, unspecified, uncomplicated (principal)

== ENCOUNTER → 2025-02-11 09:26 | Outpatient (BNVA) | payer OTHER, SELFPAY | DX: F10.90 Alcohol use, unspecified, uncomplicated (principal); Z79.899 Other long term (current) drug therapy | CPT/HCPCS: 96372; J2315 ==

== ENCOUNTER 2025-03-11 08:55 | Outpatient (AMB) | payer OTHER, SELFPAY ==
--- NOTE | 2025-03-11 09:09 | AM.OFFVISNUR ---
Vital Signs 03/11/25 09:17 BP 110/70 Pulse 70 Pulse Oximetry (%) 98 Intake Visit Reasons: Injection Allergies No Known Allergies Allergy (Verified 03/11/25 09:18) Nursing Note Fransico presents today for four week Vivitrol injection. Fransico is alert, oriented and presents with appropriate affect. Fransico reports having another good month, he is trying to support his partner that has some struggle during the holiday season, no alcohol still, right around 2 months, and he is still making progress with smoking, bought a pack a couple weeks ago, used to be 1/2 pack a day. Heading to [place] with his partner over Thanksgiving to visit family. Follow up in four weeks for next injection. Office Meds Vivitrol 380 mg intramuscular suspension,extended release Performing Provider: Kizzy Ortega MD Performing Location: [facility] Administered by: Kierra Gilmore RN on 03/11/25 09:37 Dose Route Admin Location Dispensed Lot Number Expiration Date [facility] Weekday Babysitter 380 mg IM RG 380 mg 2025-1020T 06/27/27 46615-704-25 [employer] Total Dispensed Waste 380 mg 0 % Comments: Pt is present for Vivitrol injection, pt denies complications with previous injections and tolerated injection well. Pt educated on signs and symptoms of infection at the injection site, urged to call [facility] with any questions or concerns. Follow up appointment made in 4 weeks for next injection. Assessment & Plan Assessment & Plan Orders: Orders AMB Naltrexone Injection Patient Supplied (NC) Today F10.90 - Alcohol use, unspecified, uncomplicated Coding
[2025-03-11 09:17] VITALS: BP 110/70; PULSE 70; O2SAT 98
--- OUTSIDE RECORDS SUMMARY | 2025-03-11 09:35 | XMS_ITS | Clinical Summary ---
Author Organization [facility] Address [address] [facility] [address] [place] [phone] Phone Care Team Providers Care Invoice Control Clerk Name Role Phone Sarita Julian MD, MPH [...] Immunization Administration Dates Next Due COVID-19 (Pre-02/18) [employer] Vaccine, rS-Ad26, P F 08/02/2020 Influenza Recombinant [...] Description 04/19/2025 10:40 AM EST Office Visit [facility] Internal Medicine [address] [place] [address] Frank Friedman PA-C [address] [place] [address] [email or web address] Health Maintenance [...] on patient's age to complete this topic IPV VACCINES Aged Out No longer eligi ble based on patient's age to complete this topic MENINGOCOCCAL VACCINES (ACWY) Aged Out No longer eligible based on patient's age to complete this topic MENINGOCOCCAL VACCINES (B) Aged Out N o longer eligible based on patient's age to complete this topic Medical Devices Not on file Insurance [facility] PUBLIC PLANS DIRECT [address] [place] [phone] [facility] PLANS DIRECT [address] [place] [address] PLANS [address] [place] [address] [facility] PLANS DIRECT [address] [place] [address] [facility] PLANS DIRECT [address] [place] [address] [facility] PUBLIC PLANS DIRECT [address] [place] [address] [place] [address] [place] [address] Care Teams Invoice Control Clerk Relationship Specialty Start Date End Date Sarita Julian MD, MPH [address] [place] [phone] [email or web address] PCP - General 06/09/24 Additional Source Comments The information contained in this document represents components of the legal health record. It is not the complete legal health record.[facility]
== END 2025-03-11 09:57 | disposition home or self-care (01) ==
LOC: HO.HCC 08:55
DX: F10.90 Alcohol use, unspecified, uncomplicated (principal)

== ENCOUNTER → 2025-03-11 08:55 | Outpatient (BNVA) | payer OTHER, SELFPAY | DX: F10.90 Alcohol use, unspecified, uncomplicated (principal); Z79.899 Other long term (current) drug therapy | CPT/HCPCS: 96372; J2315 ==

== ENCOUNTER 2025-04-07 09:22 | Outpatient (AMB) | payer OTHER, SELFPAY ==
--- NOTE | 2025-04-07 07:53 | AM.OFFVISNUR ---
Vital Signs 04/07/25 09:28 Height 6 ft 1 in Weight 95.254 kg BMI 27.7 BP 138/76 Blood Pressure Location Lt brachial Position Sitting Pulse 68 Pulse Source Pulse Oximeter Pulse Oximetry (%) 98 Oxygen Delivery Method Room Air Intake Visit Reasons: Injection Allergies No Known Allergies Allergy (Verified 04/07/25 09:29) Nursing Note Fransico presents today for four week Vivitrol injection. Fransico is alert, oriented and presents with appropriate affect. Fransico reports still being alcohol free for just over 3 months; he inquired about nicotine gum however did not realize that there were 3 refills- will call if needs a new RX it. Fransico had a great Thanksgiving in [place] with family ad looking forward to [place] at home with his family traveling here; partner is coping well. Follow-up in 4 weeks for the next injection. Office Meds Vivitrol 380 mg intramuscular suspension,extended release Performing Provider: Kizzy Ortega MD Performing Location: [facility] Administered by: Kierra Gilmore RN on 04/07/25 09:42 Dose Route Admin Location Dispensed Lot Number Expiration Date [facility] Youth Services Librarian 380 mg IM LG 380 mg 2025-3011T 04/28/27 73744-876-08 [employer] Total Dispensed Waste 380 mg 0 % Comments: Pt is present for Vivitrol injection, pt denies complications with previous injections and tolerated injection well. Pt educated on signs and symptoms of infection at the injection site, urged to call [facility] with any questions or concerns, pt verbalized understanding. Follow up appointment made in 4 weeks for next injection. Assessment & Plan Assessment & Plan Orders: Orders AMB Naltrexone Injection Patient Supplied (NC) Today F10.90 - Alcohol use, unspecified, uncomplicated Coding
[2025-04-07 09:28] VITALS: BP 138/76; PULSE 68; O2SAT 98; BMI 27.7
== END 2025-04-07 09:56 | disposition home or self-care (01) ==
LOC: HO.HCC 09:22
DX: F10.90 Alcohol use, unspecified, uncomplicated (principal)

== ENCOUNTER → 2025-04-07 09:22 | Outpatient (BNVA) | payer OTHER, SELFPAY | DX: F10.90 Alcohol use, unspecified, uncomplicated (principal) | CPT/HCPCS: 96372; J2315 ==